=== PATIENT | male | born 1970 | race Two or more races ===

== ENCOUNTER 2025-02-22 18:29 | Inpatient (IN) | payer MEDICAID, OTHER ==
[~2025-02-22] VITALS: Ht 175.3 cm; Wt 88.0 kg
--- NOTE | 2025-02-22 19:15 | ED.PDOC ---
HPI Comments HPI: Poor Historian. 54-year-old male presented to an outside facility ER for shortness of breath x1 day. Patient was seen 1st at [facility] and was sent to our facility for higher level of care for cardiology evaluation. Per records accompanying the patient from the outside facility it shows that the patient has a pericardial effusion. They contacted Dr. Feldman recommended to transfer the patient to our facility. Prior to arrival Patient received a breathing treatment and 20 mg of Lasix. Drug screen was negative chest x-ray from outside facility shows pulmonary vascular congestion report patient had a CTA angiogram of the chest which shows findings/impression of no evidence of PE, cardiomegaly with moderate pericardial effusion, interlobular septal thickening may reflect pulmonary edema, ascites Past Medical History: CVA with left facial droop, ambulatory, patient recently had a heart catheterization and a cardiac stress test which shows no blockage on his hard. Past Surgical History: Allergies to penicillin Patient is on Lasix and Eliquis on carvedilol at home. He states compliance with his medications. REVIEW OF SYSTEMS: CONSTITUTIONAL: Denies acute: fever, diaphoresis, chills, HEAD: Denies acute: headache, photophobia Eyes: Denies acute: Double vision, vision loss, eye pain, eye discharge. EARS: Denies acute: tinnitus, hearing loss, ear discharge, ear pain, THROAT: Denies acute: sore throat, swelling, difficulty swallowing , pain with swallowing, change in voice. NECK: Denies acute: neck pain, neck swelling, stiff neck. HEART: Denies acute : , palpitations, LUNGS: Denies acute: wheezing, cough, hemoptysis ABDOMEN: Denies acute: abdominal pain, Nausea, Vomiting, diarrhea, melena , hematemesis, hematochezia SKIN: Denies acute: rash, redness, lesions, itchiness. EXTREMITIES: Denies acute: calf pain, numbness, tingling, weakness, denies pain in extremity. Denies acute: Low back pain. Neuro: Denies acute: focal neurological deficit, motor or sensory focal neurological deficit, tremors, seizure like activity, confusion, dizziness, change in mental status, loss of bowel or bladder function, cauda equina like symptoms. : Denies acute: dysuria, hematuria, flank pain, increase in urinary frequency. PSYCH: Denies acute: hallucination, suicidal ideation, homicidal ideation. PHYSICAL EXAM: General: ----moderate----acute distress, awake and alert. Head: normocephalic, atraumatic. No raccoon's eyes, no reeves sign. Neck: supple, trachea is midline, no swelling. Throat: Normal phonation. Eyes:, no erythema, no purulent discharge, no proptosis, no icterus. Heart: regular rate, regular rhythm, no significant murmur appreciated. Lungs: mild respiratory distress, Able to speak in full sentences. No wheezing, no rhonchi, no crackles. No stridors . Abdomen: non tender to palpation, non distended, soft, no guarding, no rebound, + bowel sounds. Neuro: Awake, Alert, oriented to name, self, situation, follows commands GCS=15. Speech is normal. Skin: no petechia, no purpura, no cyanosis, non-pale, not jaundice. Lower extremities: --2/4 b/l - Pitting edema no deformity, no focal swelling, no calf TTP. Makes eye contact. moves all four extremities. Face: no apparent facial droop. ED COURSE: DISCLAIMER: This medical document was created using an electronic medical record system with voice recognition software and computerized dictation system. Although this document has been carefully reviewed, there might still be some phonetic and typographical errors. Occasional wrong-word or "sound-alike" substitutions may have occurred due to the inherent limitations of voice recognition software. These areas are purely typographical due to imperfections of the software programs and do not reflect any compromise in the patient's medical care. Please read the chart carefully and recognize, using context, where these substitutions have occurred. Time Seen by MD: 18:33 Reviewed Notes: Allergies Allergies: Coded Allergies: Penicillins (Verified Allergy, Unknown, 02/22/25) Information Source: Patient, Emergency Med Personnel Was a procedure done? Was a procedure done?: No CP Differential Dx Differential Diagnosis: N/A Differential Diagnosis: Other (Ddx include but not limitied to gastritis, mu sculoskeletal pain, radiculopathy, atypical chest pain, dissection, aneurysm, ACS, unstable angina, hiatal hernia, GERD, anxiety, costochondritis, PE, pneumothroax, neoplasm, cardiac ischemia, drug abuse, anemia.) Comment As far as his dyspnea DDx include ACS, unstable angina, anxiety, PE, pneumothroax, neoplasm, cardiac ischemia, COPD, asthma, CHF, pleural effusion, tobacco abuse, pneumonia, hypoxia, hypercapnia, anemia., infection/sepsis., pulmonary edema. Asthma, Cardiac tamponade, infection. X-Ray, Labs, Meds, VS Vital Signs Date Time Temp Pulse Resp B/P (MAP) Pulse Ox O2 Delivery O2 Flow Rate FiO2 02/22/25 20:23 143/103 02/22/25 19:33 98.9 95 20 110/78 100 98.9 02/22/25 19:31 98.7 90 25 128/83 (98) 100 98.7 02/22/25 19:31 63 25 100 Room Air* 0 21 02/22/25 18:30 92 Lab Test 02/22/25 19:57 02/22/25 19:51 02/22/25 19:07 Range/Units Urine Color Light-yellow Yellow Urine Clarity Clear Clear Urine pH 6.0 5.0-9.0 Urine Specific [place] 1.019 1.001-1.035 Urine Protein Negative Negative Urine Ketones Negative Negative Urine Blood Negative Negative /uL Urine Nitrite Negative Negative Urine Bilirubin Negative Negative Urine Urobilinogen Normal Negative mg/dL Urine Leukocyte Esterase Negative Negative /uL Urine RBC <1 0 - 3 /hpf Urine Microscopic WBC 1 0-3 /HPF Urine Squamous Epithelial Cells None seen <5 /hpf Urine Bacteria None seen None Seen /hpf Urine Glucose Normal Normal mg/dL Troponin I High Sensitivity 71 *H 62 *H </=54 ng/L White Blood Count 5.9 4.4-10.8 10^3/uL Red Blood Count 4.24 L 4.5-5.90 10^6/uL Hemoglobin 12.7 L 13.5-17.5 g/dL Hematocrit 38.5 L 41.0-53.0 % Mean Corpuscular Volume 90.8 80.0-100.0 fL Mean Corpuscular Hemoglobin 29.9 28.0-32.0 pg Mean Corpuscular Hemoglobin Concent 33.0 32.0-36.0 g/dL Red Cell Distribution Width 17.9 H 11.8-14.3 % Platelet Count 226 140-450 10^3/uL Mean Platelet Volume 8.5 6.9-10.8 fL Neutrophils (%) (Auto) 64.1 37.0-80.0 % Lymphocytes (%) (Auto) 12.6 10.0-50.0 % Monocytes (%) (Auto) 15.3 H 0.0-12.0 % Eosinophils (%) (Auto) 6.7 0.0-7.0 % Basophils (%) (Auto) 1.3 0.0-2.0 % Neutrophils # (Auto) 3.8 1.6-8.6 10 ^3/uL Lymphocytes # (Auto) 0.7 0.4-5.4 10 ^3/uL Monocytes # (Auto) 0.9 0-1.3 10 ^3/uL Eosinophils # (Auto) 0.4 0-0.8 10 ^3/uL Basophils # (Auto) 0.1 0-0.2 10 ^3/uL Nucleated Red Blood Cells 0.1 % Sodium Level 138 136-145 mmol/L Potassium Level 4.6 3.5-5.1 mmol/L Chloride Level 100 98-107 mmol/L Carbon Dioxide Level 28 20-31 mmol/L Anion Gap 10 5-15 Blood Urea Nitrogen 32 H 9-23 mg/dL Creatinine 1.46 H 0.700-1.30 mg/dL Glomerular Filtration Rate Calc 57 >90 mL/min BUN/Creatinine Ratio 21.9 H 10.0-20.0 Serum Glucose 86 74-106 mg/dL Calcium Level 9.0 8.7-10.4 mg/dL Total Bilirubin 1.1 H 0.2-1.0 mg/dL Aspartate Amino Transferase (AST) 39 13-40 U/L Alanine Aminotransferase (ALT) 28 7-40 U/L Alkaline Phosphatase 158 H 46-116 U/L B-Type Natriuretic Peptide 1065.39 0-100 pg/mL Total Protein 6.4 5.7-8.2 g/dL Albumin 3.9 3.2-4.8 g/dL Current Medications Medications (Trade) Dose Ordered Sig/Lola Route Start Time Stop Time Status Last Admin Furosemide (Lasix Injection) 60 mg ONCE ONCE IV 02/22/25 18:45 02/22/25 18:46 DC 02/22/25 20:23 Aspirin 162 mg ONCE ONCE PO 02/22/25 20:15 02/22/25 20:16 DC 02/22/25 20:24 Acetaminophen/ Hydrocodone Bitart ([place] 5/325MG Tab) 1 tab Q4HP PRN PO 02/22/25 20:15 02/22/25 21:08 X-Ray, Labs, Meds, VS Comment [facility] [id number] [place] [id number] Ph: [phone] DIAGNOSTIC IMAGING Diagnostic Imaging Report : [id number] Signed PATIENT: GORDO JOHNSON ACCT: [id number] UNIT: [id number] : 1970 LOC: ER ROOM / BED: / AGE / SEX: 54 / M ADM STATUS: REG ER SERVICE 41 ORDERING PHYSICIAN: EFRAÍN GENTILE DO PROCEDURE(s): CXRP - CHEST PORTABLE REASON: cp, sob ORDER NUMBER(s): [id number], ACCESSION NUMBER(s): [id number] CHEST RADIOGRAPH Indication: cp, sob Technique: Single frontal view of the chest was obtained Comparison: XR CHEST 1 VIEW on DOS: 02/22/25, XR CHEST 1 VIEW on DOS: 02/19/25, CHEST 1VIEW PORTABLE ([id number]) on DOS: 11/08/24 FINDINGS: Lines and Tubes: None Lungs: No focal consolidation. Pleura: No effusion. No pneumothorax. Cardiomediastinal contours: Cardiomegaly without findings of congestive failure. Consider Possible cardiomyopathy or pericardial effusion 4 etiology of the finding Bones: No acute osseous abnormality. IMPRESSION: 1. Cardiomegaly without congestive failure. 2. Consider cardiomyopathy or pericardial effusion for etiology. ATED BY: ERIC AMIN Jr., DO DICTATED DATE/TIME: 02/22/252050 SIGNED BY: ERIC AMIN Jr., DO SIGNED DATE/TIME: 02/22/252050 CC: Time of 1ST Reevaluation: 20:28 (Patient refused the BiPAP.) Reevaluation 1ST: Improved Patient Education/Counseling: Diagnosis, Treatment Family Education/Counseling: No Family Present Comments MDM: patient presented with the above HPI.--cardiac----workup was initiated. patient was found with the above mentioned diagnosis. the following medications were ordered: please refer to order lists of meds and tests obtained by myself Dr. Gentile. Patient ED course and VS have been stabilized. Patient has been reassessed in the ED and remained in a stable condition. Pertinent incidental findings were discussed with the patient and/or family. Patient/family voices understanding and is agreeable with plan. Patient has been observed in the ED adequate length of time to insure improvement/stability. Escalation of care considered: Consideration of escalation to observation or admission Patient was given Lasix. Patient was placed on a BiPAP but he refused it. Patient was ADMITTED to the medicine team for further evaluation and treatment of their presentation. All the reports of any imaging studies that were ordered by myself were reviewed by myself. SEPSIS Sepsis Screen Physician Orders Fly Finisher (02/22/25 ) Chest Portable (02/22/25 18:42) Electrocardigram (02/22/25 18:42) Electrocardigram (02/22/25 19:42) Electrocardigram (02/22/25 21:42) Aspirin Chewable Tablet (02/23/25 10:00) Atorvastatin (Lipitor) (02/22/25 22:00) Carvedilol Tablet (Coreg Tablet) (02/22/25 22:00) Furosemide Injection (Lasix Injection) (02/23/25 10:00) Allergies (02/22/25 20:04) Code Status (02/22/25 20:04) Sodium Chloride Lock (Saline Lock Ns) (02/22/25 22:00) Oxygen Per Hour (02/22/25 20:04) Hydrocodone-Acet 5/325mg Tab ([place] (02/22/25 20:15) Ondansetron Hcl (Zofran) (02/22/25 20:15) Docusate Sodium Capsule (Colace Capsule) (02/22/25 20:15) Complete Blood Count (02/23/25 04:00) Comprehensive Metabolic Panel (02/23/25 04:00) Cardiac Diet-2gna,Lofat,Lochol (02/23/25 Breakfast) Echo 2d Mode Cardiac Dop (02/22/25 20:04) Condition: Serious (02/22/25 20:04) Acetaminophen Tablet (Tylenol Tablet) (02/22/25 20:15) Bedrest With Bathroom Privileg (02/22/25 20:04) Maintain Bed Rest (02/22/25 20:04) Sequential Compression Device (02/22/25 ) * Cardiology Consult (02/22/25 20:08) Admit (02/22/25 20:34) Nitroglycerin Sublingual (Ntrostat Subli (02/22/25 20:45) Morphine Sulfate Injection (02/22/25 20:45) Stat Ekg For Chest Pain (02/22/25 20:34) Notify Md Of Changes From Base (02/22/25 20:34) Project Development Director For 24 Hours (02/22/25 20:34) Emergency Dysrhythmia Protocol (02/22/25 20:34) Rhythm Strips Once Every Shift (02/22/25 20:34) Oxygen By Nasal Cannula (02/22/25 20:34) Vital Signs Date Time Temp Pulse Resp B/P (MAP) Pulse Ox O2 Delivery O2 Flow Rate FiO2 02/22/25 20:23 143/103 02/22/25 19:33 98.9 95 20 110/78 100 98.9 02/22/25 19:31 98.7 90 25 128/83 (98) 100 98.7 02/22/25 19:31 63 25 100 Room Air* 0 21 02/22/25 18:30 92 Laboratory Tests Test 02/22/25 19:07 White Blood Count 5.9 10^3/uL (4.4-10.8) Medications Medications Dose Ordered Sig/Lola Route Start Time Stop Time Status Last Admin Dose Admin Acetaminophen/ Hydrocodone Bitart 1 tab Q4HP PRN PO 02/22/25 20:15 02/22/25 21:08 Aspirin 162 mg ONCE ONCE PO 02/22/25 20:15 02/22/25 20:16 DC 02/22/25 20:24 Furosemide 60 mg ONCE ONCE IV 02/22/25 18:45 02/22/25 18:46 DC 02/22/25 20:23 Departure 1 Departure Time of Disposition: 19:14 Impression: Primary Impression: CHF exacerbation Additional Impressions: Chest pain Elevated troponin Elevated brain natriuretic peptide (BNP) level Pericardial effusion Ascites Disposition: 09 ADMITTED INPATIENT Admit to: Tele Condition: Guarded Discharged With: Self Critical Care Note Critical Care Time?: Yes (45 min-critical care time only) Heart Score Heart Score: Heart Score Response (Comments) Value History Highly Suspicious 2 EKG Normal 0 Age 45-64 1 Risk Factors >3 or Hx ASHD 2 Troponin 1-2 x's Normal limit 1 Total 6 I personally scribed for EFRAÍN GENTILE DO ([email or web address]) on 02/22/25 at 21:18. Electronically submitted by Lionel Seymour [email or web address]). EFRAÍN GENTILE DO Feb 22, 2025 19:15
[2025-02-22 19:27] LABS: Hematocrit 38.5 % (41.0-53.0); Hemoglobin 12.7 g/dL (13.5-17.5); Mean Corpuscular Hemoglobin 29.9 pg (28.0-32.0); Mean Corpuscular Volume 90.8 fL (80.0-100.0); Nucleated Red Blood Cells % 0.1 %
[2025-02-22 19:31] VITALS: PULSE 63; RESP 25; O2SAT 100
[2025-02-22 19:47] LABS: Alanine Aminotransferase 28 U/L (7-40); Albumin 3.9 g/dL (3.2-4.8); Anion Gap 10 (5-15); BUN/Creatinine Ratio 21.9 (10.0-20.0); Bilirubin, Total 1.1 mg/dL (0.2-1.0); Calcium 9.0 mg/dL (8.7-10.4); Carbon Dioxide 28 mmol/L (20-31); Chloride 100 mmol/L (98-107); Glucose 86 mg/dL (74-106); Potassium 4.6 mmol/L (3.5-5.1); Sodium 138 mmol/L (136-145); Total Protein 6.4 g/dL (5.7-8.2)
[2025-02-22 19:49] LABS: Alkaline Phosphatase 158 U/L (46-116); Blood Urea Nitrogen 32 mg/dL (9-23)
[2025-02-22] MEDS ORDERED: DOCUSATE SOD 100 MG CAP PO PRN (20:15)
[2025-02-22] MEDS ORDERED: ACETAMINOPHEN 325 MG TAB PO PRN (20:15)
[2025-02-22] MEDS ORDERED: ONDANSETRON HCL 4 MG/2 ML VIAL IV PRN (20:15)
[2025-02-22] MEDS: FUROSEMIDE 100 MG/10ML VIAL IV ONE (20:23)
--- NOTE | 2025-02-22 20:35 | DVHHP2 ---
History of Present Illness Reason for Visit: Acute exacerbation of congestive heart failure History of Present Illness The patient is a 54-year-old male with past medical history of CVA with left facial droop who presented to [facility] ED with complaint of chest pain associated with shortness of breaths for the past 1 day. Patient was seen initially at [facility] and was sent to our facility for higher level of care for cardiology evaluation. Per records accompanying the patient from the outside facility it shows that the patient has a pericardial effusion. They contacted Dr. Feldman who recommended to transfer the patient to our facility. Patient was seen and evaluated in the ED, laboratory data shows WBC 5.9, hemoglobin 12.7, hematocrit 38.5, platelets 226, sodium 138, potassium 4.6, BUN 32, creatinine 1.46, GFR 57, glucose 86, bilirubin 1.1, alkaline phos 158, BNP 1065.39, troponin 62, blood pressure 110/78, heart rate 95, temperature 98.9 F, O2 saturation 99% on room air. Patient was started on IV Lasix, please see medication orders section in the computer. On my assessment, patient denied chest pain at this moment, no headache, dizziness, diaphoresis, currently on oxygen, no diarrhea, nausea, vomiting, fever, no chills. Patient was admitted for further evaluation and medical management. Past Medical History CVA with left facial droop Past Surgical History Cardiac catheterization Family History Reviewed, noncontributory to the management of this case. Past Social History The patient lives at home, denies smoking, alcohol or illicit drugs abuse. Review of Systems Constitutional: Yes: Weakness; No: Fever, Chills, Sweats, Malaise, Other Eyes: No: Pain, Vision change, Conjunctivae inflammation, Eyelid inflammation, Other, Redness ENT: No: Ear pain, Ear discharge, Nose pain, Nose discharge, Nose congestion, Mouth pain, Mouth swelling, Throat pain, Throat swelling, Other Respiratory: Shortness of breath; No: Cough, Dry, SOB with excertion, Wheezing, Hemoptysis, Pleuritic Pain, Sputum, Wheezing, Other Cardiovascular: Chest Pain; No: Palpitations, Orthopnea, Paroxysmal Noc. Dyspnea, Edema, Lt Headedness, Other Gastrointestinal: No: Nausea, Vomiting, Abdominal Pain, Diarrhea, Constipation, Melena, Hematochezia, Other Genitourinary: No Dysuria, No Frequency, No Incontinence, No Hematuria, No Ret ention, No Other Musculoskeletal: No: other, neck pain, shoulder pain, arm pain, back pain, hand pain, leg pain, foot pain Skin: No: Rash, Lesions, Jaundice, Bruising, Other Neurological: No: Weakness, Numbness, Incoordination, Change in speech, Confusion, Seizures, Other Allergies: Coded Allergies: Penicillins (Verified Allergy, Unknown, 02/22/25) Medications Current Medications Medications Dose Ordered Sig/Lola Route Start Time Stop Time Status Last Admin Dose Admin Aspirin 81 mg DAILY PO 02/23/25 10:00 Atorvastatin Calcium 10 mg HS PO 02/22/25 22:00 Carvedilol 3.125 mg Q12HR PO 02/22/25 22:00 Furosemide 40 mg DAILY IV 02/23/25 10:00 Sodium Chloride 10 ml Q8HR IV 02/22/25 22:00 Acetaminophen/ Hydrocodone Bitart 1 tab Q4HP PRN PO 02/22/25 20:15 Ondansetron HCl 4 mg Q4HP PRN IV 02/22/25 20:15 Docusate Sodium 100 mg BIDPRN PRN PO 02/22/25 20:15 Acetaminophen 650 mg Q6HP PRN PO 02/22/25 20:15 Exam Vital Signs Vital Signs Date Time Temp Pulse Resp B/P (MAP) Pulse Ox O2 Delivery O2 Flow Rate FiO2 02/22/25 20:23 143/103 02/22/25 19:33 98.9 95 20 100 98.9 02/22/25 19:31 Room Air* 0 21 General Appearance: Alert, Oriented X3, Cooperative, No acute distress HEENT: Atraumatic, PERRLA, EOMI, Mucous membr. moist/pink Respiratory: Normal air movement Cardiovascular: Regular rate, Normal S1, Normal S2, No murmurs Abdominal: Normal bowel sounds, Soft, No tenderness, No hepatospenomegaly, No masses Extremities: No clubbing, No cyanosis, No edema, Normal pulses, No tenderness/swelling Skin: No rashes, No significant lesion Neuro: Normal speech, Normal tone, Sensation intact, Cranial nerves 3-12 NL, Reflexes 2+, Other (Generalized weakness) Psych/Mental Status: Mental status NL, Mood NL Labs/Xrays Labs Test 02/22/25 19:51 02/22/25 19:07 Range/Units White Blood Count 5.9 4.4-10.8 10^3/uL Red Blood Count 4.24 L 4.5-5.90 10^6/uL Hemoglobin 12.7 L 13.5-17.5 g/dL Hematocrit 38.5 L 41.0-53.0 % Mean Corpuscular Volume 90.8 80.0-100.0 fL Mean Corpuscular Hemoglobin 29.9 28.0-32.0 pg Mean Corpuscular Hemoglobin Concent 33.0 32.0-36.0 g/dL Red Cell Distribution Width 17.9 H 11.8-14.3 % Platelet Count 226 140-450 10^3/uL Mean Platelet Volume 8.5 6.9-10.8 fL Neutrophils (%) (Auto) 64.1 37.0-80.0 % Lymphocytes (%) (Auto) 12.6 10.0-50.0 % Monocytes (%) (Auto) 15.3 H 0.0-12.0 % Eosinophils (%) (Auto) 6.7 0.0-7.0 % Basophils (%) (Auto) 1.3 0.0-2.0 % Neutrophils # (Auto) 3.8 1.6-8.6 10 ^3/uL Lymphocytes # (Auto) 0.7 0.4-5.4 10 ^3/uL Monocytes # (Auto) 0.9 0-1.3 10 ^3/uL Eosinophils # (Auto) 0.4 0-0.8 10 ^3/uL Basophils # (Auto) 0.1 0-0.2 10 ^3/uL Nucleated Red Blood Cells 0.1 % Sodium Level 138 136-145 mmol/L Potassium Level 4.6 3.5-5.1 mmol/L Chloride Level 100 98-107 mmol/L Carbon Dioxide Level 28 20-31 mmol/L Anion Gap 10 5-15 Blood Urea Nitrogen 32 H 9-23 mg/dL Creatinine 1.46 H 0.700-1.30 mg/dL Glomerular Filtration Rate Calc 57 >90 mL/min BUN/Creatinine Ratio 21.9 H 10.0-20.0 Serum Glucose 86 74-106 mg/dL Calcium Level 9.0 8.7-10.4 mg/dL Total Bilirubin 1.1 H 0.2-1.0 mg/dL Aspartate Amino Transferase (AST) 39 13-40 U/L Alanine Aminotransferase (ALT) 28 7-40 U/L Alkaline Phosphatase 158 H 46-116 U/L B-Type Natriuretic Peptide 1065.39 0-100 pg/mL Total Protein 6.4 5.7-8.2 g/dL Albumin 3.9 3.2-4.8 g/dL PATIENT: GORDO JOHNSON ACCT: [id number] UNIT: [id number] : 1970 LOC: ER ROOM / BED: / AGE / SEX: 54 / M ADM STATUS: REG ER SERVICE 184 ORDERING PHYSICIAN: EFRAÍN GENTILE DO PROCEDURE(s): CXRP - CHEST PORTABLE REASON: cp, sob ORDER NUMBER(s): [id number], ACCESSION NUMBER(s): [id number] CHEST RADIOGRAPH Indication: cp, sob Technique: Single frontal view of the chest was obtained Comparison: XR CHEST 1 VIEW on DOS: 02/22/25, XR CHEST 1 VIEW on DOS: 02/19/25, CHEST 1VIEW PORTABLE ([id number]) on DOS: 11/08/24 FINDINGS: Lines and Tubes: None Lungs: No focal consolidation. Pleura: No effusion. No pneumothorax. Cardiomediastinal contours: Cardiomegaly without findings of congestive failure. Consider Possible cardiomyopathy or pericardial effusion 4 etiology of the finding Bones: No acute osseous abnormality. IMPRESSION: 1. Cardiomegaly without congestive failure. 2. Consider cardiomyopathy or pericardial effusion for etiology. SEPSIS Sepsis Screen Date sepsis recognized/suspect: Feb 22, 2025 Time Sepsis recognized/suspect: 1831 Recent Procedure: No On Antibiotic Therapy: No Respiratory Rate >20: No Heart Rate >90: No Temp<36 C (96.8 F) or >38.3 C: No SBP <90 or MAP <65 mmHG: No New Acute Mental Status Change: No Is the patient on CPAP, BIPAP,: No Physician Orders Portainer Operator (02/22/25 ) Urinalysis (02/22/25 18:42) Chest Portable (02/22/25 18:42) Electrocardigram (02/22/25 18:42) Troponin-I Hs (02/22/25 19:42) Troponin-I Hs (02/22/25 21:42) Electrocardigram (02/22/25 19:42) Electrocardigram (02/22/25 21:42) Aspirin Chewable Tablet (02/23/25 10:00) Atorvastatin (Lipitor) (02/22/25 22:00) Carvedilol Tablet (Coreg Tablet) (02/22/25 22:00) Furosemide Injection (Lasix Injection) (02/23/25 10:00) Allergies (02/22/25 20:04) Code Status (02/22/25 20:04) Sodium Chloride Lock (Saline Lock Ns) (02/22/25 22:00) Oxygen Per Hour (02/22/25 20:04) Hydrocodone-Acet 5/325mg Tab ([place] (02/22/25 20:15) Ondansetron Hcl (Zofran) (02/22/25 20:15) Docusate Sodium Capsule (Colace Capsule) (02/22/25 20:15) Complete Blood Count (02/23/25 04:00) Comprehensive Metabolic Panel (02/23/25 04:00) Cardiac Diet-2gna,Lofat,Lochol (02/23/25 Breakfast) Echo 2d Mode Cardiac Dop (02/22/25 20:04) Condition: Serious (02/22/25 20:04) Acetaminophen Tablet (Tylenol Tablet) (02/22/25 20:15) Bedrest With Bathroom Privileg (02/22/25 20:04) Maintain Bed Rest (02/22/25 20:04) Sequential Compression Device (02/22/25 ) * Cardiology Consult (02/22/25 20:08) Vital Signs Date Time Temp Pulse Resp B/P (MAP) Pulse Ox O2 Delivery O2 Flow Rate FiO2 02/22/25 20:23 143/103 02/22/25 19:33 98.9 95 20 110/78 100 98.9 02/22/25 19:31 98.7 90 25 128/83 (98) 100 98.7 02/22/25 19:31 63 25 100 Room Air* 0 21 02/22/25 18:30 92 Laboratory Tests Test 02/22/25 19:07 White Blood Count 5.9 10^3/uL (4.4-10.8) Medications Medications Dose Ordered Sig/Lola Route Start Time Stop Time Status Last Admin Dose Admin Aspirin 162 mg ONCE ONCE PO 02/22/25 20:15 02/22/25 20:16 DC 02/22/25 20:24 162 MG Furosemide 60 mg ONCE ONCE IV 02/22/25 18:45 02/22/25 18:46 DC 02/22/25 20:23 60 MG Assessment/Plan Assessment/Plan Acute exacerbation of congestive heart failure Elevated troponin Pericardial effusion Acute renal injury Generalized weakness Plan 1. Admit to telemetry unit 2. Breathing treatment 3. Pain control management 4. Management of fluids and electrolytes 5. Consultation for Cardiology 6. Diagnostic tests chest x-ray/echocardiogram 7. DVT prophylaxis-on aspirin 8. Repeat labs CBC, CMP in a.m. 9. Continue with current medical management 10. Treatment plan discussed with patient and RN. Patient verbalized understanding. Plan discussed with: Patient, Other (RN) My Orders Orders - TIFFANY ZAVALA DNP Procedure Category Date Status Time Aspirin Chewable PHA 02/23/25 In Process Tablet 10:00 Atorvastatin (Lipitor) PHA 02/22/25 In Process 22:00 Carvedilol Tablet PHA 02/22/25 In Process (Coreg Tablet) 22:00 Furosemide Injection PHA 02/23/25 In Process (Lasix Injection) 10:00 Allergies MONTEZ 02/22/25 In Process 20:04 Code Status CODE 02/22/25 Transmitted 20:04 Sodium Chloride Lock PHA 02/22/25 In Process (Saline Lock Ns) 22:00 Oxygen Per Hour RT 02/22/25 Transmitted 20:04 Hydrocodone-Acet PHA 02/22/25 In Process 5/325mg Tab ([place] 20:15 Ondansetron Hcl PHA 02/22/25 In Process (Zofran) 20:15 Docusate Sodium PHA 02/22/25 In Process Capsule (Colace 20:15 Complete Blood Count LAB 02/23/25 Verified 04:00 Comprehensive LAB 02/23/25 Verified Metabolic Panel 04:00 Cardiac DIET 02/23/25 Transmitted Diet-2gna,Lofat,Lochol Breakfast Echo 2d Mode Cardiac US 02/22/25 Logged DOP 20:04 Condition: Serious MONTEZ 02/22/25 In Process 20:04 Acetaminophen Tablet PHA 02/22/25 In Process (Tylenol Tablet) 20:15 Bedrest With Bathroom MONTEZ 02/22/25 In Process Privileg 20:04 Maintain Bed Rest MONTEZ 02/22/25 In Process 20:04 Sequential MONTEZ 02/22/25 In Process Compression Device * Cardiology Consult CONS 02/22/25 Transmitted 20:08 Problem List: (1) Acute exacerbation of congestive heart failure (2) Elevated troponin (3) Pericardial effusion (4) Acute renal injury (5) Generalized weakness Date of Service: Feb 22, 2025 Billing Provider: TIFFANY ZAVALA DNP Common Visit Codes: [id number] INP/OBS CARE (HIGH) TIFFANY ZAVALA DNP Feb 22, 2025 20:35
[2025-02-22] MEDS ORDERED: MORPHINE SULFATE INJ 2 MG/ml SYRG IV PRN (20:45)
--- NOTE | 2025-02-22 20:54 | DVH ---
CHEST RADIOGRAPH Indication: cp, sob Technique: Single frontal view of the chest was obtained Comparison: XR CHEST 1 VIEW on DOS: 02/22/25, XR CHEST 1 VIEW on DOS: 02/19/25, CHEST 1VIEW PORTABLE ([id number]) on DOS: 11/08/24 FINDINGS: Lines and Tubes: None Lungs: No focal consolidation. Pleura: No effusion. No pneumothorax. Cardiomediastinal contours: Cardiomegaly without findings of congestive failure. Consider Possible cardiomyopathy or pericardial effusion 4 etiology of the finding Bones: No acute osseous abnormality. IMPRESSION: 1. Cardiomegaly without congestive failure. 2. Consider cardiomyopathy or pericardial effusion for etiology.
[2025-02-22] MEDS: HYDROcodone-ACET 5/325MG TAB PO PRN (21:08)
[2025-02-22 21:44] LABS: Urine Protein, UAD Negative (Negative)
[2025-02-22] MEDS: CARVEDILOL 3.125 MG TAB PO SCH (22:58)
[2025-02-22] MEDS: SODIUM CHLOR 0.9% PF (SALINE LOCK) 10ML VIAL/SYR IV SCH (22:59)
[2025-02-22] MEDS: ATORVASTATIN 20 MG TAB PO SCH (22:59)
[2025-02-23] VITALS (8 sets, daily range): BP systolic 102–136; BP diastolic 51–87; PULSE 42–93; RESP 16–20; TEMP 97.3–99.4; O2SAT 94–100
[2025-02-23] MEDS: NITROGLYCERIN 0.4 MG SL TAB SL PRN (02:01)
[2025-02-23] MEDS ORDERED: CARV3.1240 PO (04:42)
[2025-02-23] MEDS ORDERED: FURO80TA3 PO (04:42)
[2025-02-23] MEDS ORDERED: NITR0.4S29 SL (04:42)
[2025-02-23] MEDS ORDERED: LISI40TA16 PO (04:42)
[2025-02-23] MEDS ORDERED: APIX2.5T PO (04:42)
[2025-02-23 05:52] LABS: Hematocrit 37.7 % (41.0-53.0); Hemoglobin 12.3 g/dL (13.5-17.5); Mean Corpuscular Hemoglobin 29.6 pg (28.0-32.0); Mean Corpuscular Volume 90.5 fL (80.0-100.0); Nucleated Red Blood Cells % 0.0 %
[2025-02-23 06:14] LABS: Alanine Aminotransferase 27 U/L (7-40); Albumin 3.6 g/dL (3.2-4.8); Anion Gap 9 (5-15); BUN/Creatinine Ratio 21.6 (10.0-20.0); Bilirubin, Total 1.2 mg/dL (0.2-1.0); Calcium 8.9 mg/dL (8.7-10.4); Carbon Dioxide 30 mmol/L (20-31); Chloride 99 mmol/L (98-107); Glucose 91 mg/dL (74-106); Potassium 3.9 mmol/L (3.5-5.1); Sodium 138 mmol/L (136-145); Total Protein 6.1 g/dL (5.7-8.2)
[2025-02-23 06:15] LABS: Alkaline Phosphatase 143 U/L (46-116); Blood Urea Nitrogen 30 mg/dL (9-23)
[2025-02-23] MEDS: FUROSEMIDE 40 MG/4 ML VIAL IV SCH (08:54)
--- NOTE | 2025-02-23 10:39 | ECG ---
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
--- NOTE | 2025-02-23 13:53 | DVHSR ---
APPROVED REPORT EXAM: Two-dimensional and M-mode echocardiogram with Doppler, color Doppler and Optison. Blood Pressure: 106/87 mmHg INDICATION chf exacerbation, unspecified Contrast Details Indication: Rule out thrombus Amount Used: 1mL RISK FACTORS Height: 5'9, Weight: 199 DIMENSIONS LVDd 6.5 (3.8-5.7cm) LA (2D) 4.7 (1.9-4.0cm) Aortic Root 3.3 (2.0-3.7cm) LVDs 6.3 (2.5-4.0cm) LA (MM) (1.9-4.0cm) Aortic Cusp Exc 1.6 (1.5-2.0cm) EF (%) 7.0 (55-70%) Rt. Atrium 5.4 (1.9-4.0cm) Asc. Aorta 3.1 cm IVSd 0.9 (0.7-1.1cm) RV (D) 5.6 (1.8-2.4cm) PWd 1.1 (0.7-1.1cm) Mitral Valve Mitral Mitral Stenosis E wave 0.72m/s MV Mean GR. mmHg A wave 0.33m/s MV Peak GR. 73mmHg E/A ratio 2.2 2D MVA cm2 DECEL Time 110ms PRESS 1/2 Time ms Aortic Valve Aortic Valve Aortic Stenosis V1 0.42m/s AO Mean GR. 3mmHg V2 1.04m/s AO Peak GR. 4mmHg LVOT Diameter 2.0 (1.8-2.4cm) Doppler GABRIELLE 1.27cm2 Pulmonic Valve V2 0.60m/s Tricuspid Valve TR Velocity 2.48m/s RVSP 43mmHg Conclusion 1) Severely dilated cardiomyopathy with estimated ejection fraction of 10-15%. There is a global LV wall hypokinsis. The LV has a "D-shape" consistent with RV volume and pressure overload suggestive of pulmonary HTN with estimated right ventricular systolic pressure of -35-40 mmHg 2)Biatrial dilation 3)Moderate mitral and tricuspid regurgitation 4)Dilated IVC suggestive of possible elevated right atrial pressure 5)Moderate pericardial effusion
--- NOTE | 2025-02-23 14:30 | DVHPN2 ---
Subjective still having sob Reviewed: H&P Changes from previous H/P or p: No Changes Eyes: No Pain, No Vision change, No Conjunctivae inflammation, No Eyelid inflammation, No Other, No Redness ENT: No Ear pain, No Ear discharge, No Nose pain, No Nose discharge, No Nose congestion, No Mouth pain, No Mouth swelling, No Throat pain, No Throat swelling, No Other Cardiovascular: Chest Pain; No Palpitations, No Orthopnea, No Paroxysmal Noc. Dyspnea, No Edema, No Lt Headedness, No Other Respiratory: No Cough, No Dry; Shortness of breath; No SOB with excertion, No Wheezing, No Hemoptysis, No Pleuritic Pain, No Sputum, No Other Gastrointestinal: No Nausea, No Vomiting, No Abdominal Pain, No Diarrhea, No Constipation, No Melena, No Hematochezia, No Other Genitourinary: No Dysuria, No Frequency, No Incontinence, No Hematuria, No Retention, No Other Musculoskeletal: No other, No neck pain, No shoulder pain, No arm pain, No back pain, No hand pain, No leg pain, No foot pain Skin: No Rash, No Lesions, No Jaundice, No Bruising, No Other Objective Vitals Vital Signs Date Time Temp Pulse Resp B/P (MAP) Pulse Ox O2 Delivery O2 Flow Rate FiO2 02/23/25 13:00 97.8 60 16 102/72 (82) 97 97.8 02/23/25 08:00 Room Air* 0 21 Intake/Output Intake and Output 02/23/25 07:00 Intake Total 230 ml Balance 230 ml Intake Oral 230 ml General Appearance: Alert, Oriented X3 HEENT: Atraumatic Lungs: Clear to auscultation Cardiovascular: Regular rate, Normal S1, Normal S2 Extremities: Other (LE edema) Medications Current Medications Medications Dose Ordered Sig/Lola Route Start Time Stop Time Status Last Admin Dose Admin Aspirin 81 mg DAILY PO 02/23/25 10:00 02/23/25 08:53 81 MG Atorvastatin Calcium 10 mg HS PO 02/22/25 22:00 02/22/25 22:59 10 MG Carvedilol 3.125 mg Q12HR PO 02/22/25 22:00 02/23/25 08:53 3.125 MG Furosemide 40 mg DAILY IV 02/23/25 10:00 02/23/25 08:54 40 MG Sodium Chloride 10 ml Q8HR IV 12/5/25 22:00 02/23/25 06:00 10 ML Acetaminophen/ Hydrocodone Bitart 1 tab Q4HP PRN PO 02/22/25 20:15 02/23/25 11:53 1 TAB Ondansetron HCl 4 mg Q4HP PRN IV 02/22/25 20:15 Docusate Sodium 100 mg BIDPRN PRN PO 02/22/25 20:15 Acetaminophen 650 mg Q6HP PRN PO 02/22/25 20:15 Nitroglycerin 0.4 mg Q5MINP PRN SL 02/22/25 20:45 02/23/25 02:01 0.4 MG Morphine Sulfate 2 mg Q30M PRN IV 02/22/25 20:45 Laboratory Results Laboratory Tests 02/23/25 05:21 Chemistry Test 02/22/25 19:07 02/23/25 05:21 Albumin 3.9 g/dL (3.2-4.8) 3.6 g/dL (3.2-4.8) Calcium Level 9.0 mg/dL (8.7-10.4) 8.9 mg/dL (8.7-10.4) Total Protein 6.4 g/dL (5.7-8.2) 6.1 g/dL (5.7-8.2) Cardiac Markers Test 02/22/25 19:07 B-Type Natriuretic Peptide 1065.39 pg/mL (0-100) LFT Test 02/22/25 19:07 02/23/25 05:21 Alanine Aminotransferase (ALT) 28 U/L (7-40) 27 U/L (7-40) Alkaline Phosphatase 158 U/L (46-116) H 143 U/L (46-116) H Aspartate Amino Transferase (AST) 39 U/L (13-40) 38 U/L (13-40) Total Bilirubin 1.1 mg/dL (0.2-1.0) H 1.2 mg/dL (0.2-1.0) H Urinalysis Test 02/22/25 19:57 Urine Color Light-yellow (Yellow) Urine Clarity Clear (Clear) Urine pH 6.0 (5.0-9.0) Urine Specific [place] 1.019 (1.001-1.035) Urine Protein Negative (Negative) Urine Ketones Negative (Negative) Urine Blood Negative /uL (Negative) Urine Nitrite Negative (Negative) Urine Bilirubin Negative (Negative) Urine Urobilinogen Normal mg/dL (Negative) Urine Leukocyte Esterase Negative /uL (Negative) Urine RBC <1 /hpf (0 - 3) Urine Microscopic WBC 1 /HPF (0-3) Urine Squamous Epithelial Cells None seen /hpf (<5) Urine Bacteria None seen /hpf (None Seen) Urine Glucose Normal mg/dL (Normal) Assessment/Plan Assessment/Plan Acute exacerbation of congestive heart failure Elevated troponin Pericardial effusion Acute renal injury Generalized weakness Continue IV lasix echocardiogram cardiology consulted Plan discussed with: Patient Date of Service: Feb 23, 2025 Billing Provider: JUVENCIO BRISCOE MD Common Visit Codes: [id number] INP/OBS CARE(HIGH) JUVENCIO BRISCOE MD Feb 23, 2025 14:30
[2025-02-23 22:37] LABS: Amphetamine Screen, Urine Neg (NEGATIVE); Barbiturate Scree,Urine Neg (NEGATIVE); Benzodiazephine Screen, Urine Neg (NEGATIVE); Cannabinoid Screen, Urine Neg (NEGATIVE); Cocaine Screen, Urine Neg (NEGATIVE); Opiate Scree,Urine Neg (NEGATIVE); Phencyclidine Screen, Urine Neg (NEGATIVE)
[2025-02-24] VITALS (8 sets, daily range): BP systolic 100–110; BP diastolic 63–84; PULSE 53–95; RESP 17–20; TEMP 97.4–98.7; O2SAT 94–99
[2025-02-24] MEDS: OPTISON 3ml Vial for INJ IV ONE (03:52)
--- NOTE | 2025-02-24 05:52 | DVHINCON2 ---
Date of service: Feb 24, 2025 Reason for Consultation Pericardial Effusion History of Present Illness This is a 54-year old male who initially presented with reported shortness of breath for approximately 1 day prior to initial presentation. Patient had initially been evaluated at [facility] for his symptoms which review of chart mentions outside imaging (CTA of Chest) had been performed at [facility] and had revealed no evidence for pulmonary embolism, cardiomegaly with presence of a moderate-sized pericardial effusion, with interlobular septal thickening possibly reflecting pulmonary edema/ascites ultimately prompting OC transfer to present facility for further evaluation/management of reported pericardial effusion which cardiology services were subsequently involved. Throughout course of present admission, Echocardiogram had reported severely dilated cardiomyopathy with an LVEF of 10-15% with global LV wall hypokinesis, biatrial dilation, moderate mitral/tricuspid insufficiency, RVSP of 35-40mmHg consistent with pulmonary hypertension, in addition to presence of a moderate- sized pericardial effusion which patient has remained hemodynamically stable with no evidence for significant hypotension nor tachycardia to suggest tamponade physiology at this point. Of note, patient does mention previous history of heart failure from before that had been diagnosed a few years ago which he is reportedly managed by his primary telegrapher agent Dr. Cooney located in [place], [place] with last follow up approximated to be one month ago. Patient himself does report his EF was around the range of 12% from one year ago (records not available). Does mention he underwent previous angiogram within the last year which he denies any interventions/stenting (records not available). Of note, does report old history of methamphetamine use/abuse which he conveys he no longer uses. UDS at present is found negative. Mentions at one point he had been initiated on Life Vest therapy however had relinquished vest on his own which at present, LIfe Vest therapy had again been offered however patient himself has declined its use despite potential ramifications including sudden cardiac . Of note, patient does take low-dose Eliquis as outpatient which he reports having been on for a few years now initiated by his outside telegrapher agent however indication of anticoagulation at this point is unclear as patient himself denies any history of atrial fibrillation or previous blood clots from before. At present, does have minimal/flat elevation of high sensitive troponins (62, 71, 64, 65). 12-lead electrocardiogram had revealed sinus rhythm, PAC, QTC of 506 milliseconds, with no evidence for acute ischemic changes. Initial BNP level had been found elevated at 1065.39 which subsequent chest x-ray had revealed cardiomegaly without congestive heart failure. Denies any active chest pain, palpitations, dizziness, syncope, orthopnea, paroxysmal nocturnal dyspnea, or any further cardiac related symptoms. Cardiology services were subsequently involved by primary team request for cardiac aspects of care. Reported past medical history includes systolic heart failure and old history of previous cerebral vascular accident, Echocardiogram: severely dilated cardiomyopathy with estimated ejection fraction of 10-15%. There is a global LV wall hypokinesis. The LV has a "D-shape" consistent with RV volume and pressure overload suggestive of pulmonary HTN with estimated right ventricular systolic pressure of -35-40 mmHg. Biatrial dilation. Moderate mitral and tricuspid regurgitation. Dilated IVC suggestive of possible elevated right atrial pressure. Moderate pericardial effusion Past Medical History Reviewed Past Surgical History Reviewed Allergies: Coded Allergies: Penicillins (Verified Allergy, Unknown, 02/22/25) Home Meds Reported Medications Nitroglycerin (NTROSTAT SUBLINGUAL) 0.4 Mg Sl, 0.4 MG SL PRN, TAB *MAY REPEAT EVERY 5 MINUTES X 3 TOTAL IF NO RELIEF, INITIATE ANALGESIC THERAPY. NOTIFY PHYSICIAN *Do not crush. 02/23/25 Apixaban Base (ELIQUIS) 2.5 Mg Tab, 2.5 MG PO BID, TAB 02/23/25 Furosemide (Furosemide) 80 Mg Tab, 1 TAB PO BID, #180 TAB 3 Refills 02/23/25 Carvedilol (Carvedilol) 3.125 Mg Tab, 3.125 MG PO BID for 30 Days, MG 02/23/25 Lisinopril (Lisinopril) 40 Mg Tab, 1 TAB PO DAILY, #30 TAB 5 Refills 02/23/25 Current Medications Current Medications Medications (Trade) Dose Ordered Sig/Lola Route PRN Reason Start Time Stop Time Status Last Admin Aspirin 81 mg DAILY PO 02/23/25 10:00 02/23/25 08:53 Furosemide (Lasix Injection) 40 mg DAILY IV 02/23/25 10:00 02/23/25 08:54 Review of Systems A 14-point review of systems is negative unless otherwise noted above Vital Signs Vital Signs Date Time Temp Pulse Resp B/P (MAP) Pulse Ox O2 Delivery O2 Flow Rate FiO2 12/7/25 05:00 98.2 95 19 104/84 (91) 99 98.2 02/23/25 20:00 Room Air* 0 21 Physical Exam Heart: S1 and S2 regular. No JVD. The patient is in sinus rhythm. Lungs: Scattered rhonchi. Abdomen: Benign. Extremities: Distal pulses palpable, 2+.Mild bilateral peripheral edema Labs/Diagnostic Data Labs Test 02/23/25 21:52 02/23/25 05:21 02/22/25 23:48 02/22/25 19:57 Range/Units Urine Opiates Screen Neg NEGATIVE Urine Fentanyl Screen Neg NEGATIVE Urine Barbiturates Screen Neg NEGATIVE Urine Phencyclidine Screen Neg NEGATIVE Urine Amphetamines Screen Neg NEGATIVE Urine Benzodiazepines Screen Neg NEGATIVE Urine Cocaine Screen Neg NEGATIVE Urine Cannabinoids Screen Neg NEGATIVE White Blood Count 5.7 4.4-10.8 10^3/uL Red Blood Count 4.16 L 4.5-5.90 10^6/uL Hemoglobin 12.3 L 13.5-17.5 g/dL Hematocrit 37.7 L 41.0-53.0 % Mean Corpuscular Volume 90.5 80.0-100.0 fL Mean Corpuscular Hemoglobin 29.6 28.0-32.0 pg Mean Corpuscular Hemoglobin Concent 32.7 32.0-36.0 g/dL Red Cell Distribution Width 18.2 H 11.8-14.3 % Platelet Count 210 140-450 10^3/uL Mean Platelet Volume 8.5 6.9-10.8 fL Neutrophils (%) (Auto) 62.0 37.0-80.0 % Lymphocytes (%) (Auto) 14.4 10.0-50.0 % Monocytes (%) (Auto) 15.1 H 0.0-12.0 % Eosinophils (%) (Auto) 7.1 H 0.0-7.0 % Basophils (%) (Auto) 1.4 0.0-2.0 % Neutrophils # (Auto) 3.5 1.6-8.6 10 ^3/uL Lymphocytes # (Auto) 0.8 0.4-5.4 10 ^3/uL Monocytes # (Auto) 0.9 0-1.3 10 ^3/uL Eosinophils # (Auto) 0.4 0-0.8 10 ^3/uL Basophils # (Auto) 0.1 0-0.2 10 ^3/uL Nucleated Red Blood Cells 0.0 % Sodium Level 138 136-145 mmol/L Potassium Level 3.9 3.5-5.1 mmol/L Chloride Level 99 98-107 mmol/L Carbon Dioxide Level 30 20-31 mmol/L Anion Gap 9 5-15 Blood Urea Nitrogen 30 H 9-23 mg/dL Creatinine 1.39 H 0.700-1.30 mg/dL Glomerular Filtration Rate Calc 60 >90 mL/min BUN/Creatinine Ratio 21.6 H 10.0-20.0 Serum Glucose 91 74-106 mg/dL Calcium Level 8.9 8.7-10.4 mg/dL Total Bilirubin 1.2 H 0.2-1.0 mg/dL Aspartate Amino Transferase (AST) 38 13-40 U/L Alanine Aminotransferase (ALT) 27 7-40 U/L Alkaline Phosphatase 143 H 46-116 U/L Total Protein 6.1 5.7-8.2 g/dL Albumin 3.6 3.2-4.8 g/dL Troponin I High Sensitivity 65 *H </=54 ng/L Urine Color Light-yellow Yellow Urine Clarity Clear Clear Urine pH 6.0 5.0-9.0 Urine Specific [place] 1.019 1.001-1.035 Urine Protein Negative Negative Urine Ketones Negative Negative Urine Blood Negative Negative /uL Urine Nitrite Negative Negative Urine Bilirubin Negative Negative Urine Urobilinogen Normal Negative mg/dL Urine Leukocyte Esterase Negative Negative /uL Urine RBC <1 0 - 3 /hpf Urine Microscopic WBC 1 0-3 /HPF Urine Squamous Epithelial Cells None seen <5 /hpf Urine Bacteria None seen None Seen /hpf Urine Glucose Normal Normal mg/dL Test 02/22/25 19:07 Range/Units B-Type Natriuretic Peptide 1065.39 0-100 pg/mL Plan/Recommendation ASSESSMENT: This is a 54-year old male who initially presented with reported shortness of breath for approximately 1 day prior to initial presentation. Patient had initially been evaluated at [facility] for his symptoms which review of chart mentions outside imaging (CTA of Chest) had been performed at [facility] and had revealed no evidence for pulmonary embolism, cardiomegaly with presence of a moderate-sized pericardial effusion, with interlobular septal thickening possibly reflecting pulmonary edema/ascites ultimately prompting [facility] transfer to present facility for further evaluation/management of reported pericardial effusion which cardiology services were subsequently involved. Throughout course of present admission, Echocardiogram had reported severely dilated cardiomyopathy with an LVEF of 10-15% with global LV wall hypokinesis, biatrial dilation, moderate mitral/tricuspid insufficiency, RVSP of 35-40mmHg consistent with pulmonary hypertension, in addition to presence of a moderate- sized pericardial effusion which patient has remained hemodynamically stable with no evidence for significant hypotension nor tachycardia to suggest tamponade physiology at this point. Of note, patient does mention previous history of heart failure from before that had been diagnosed a few years ago which he is reportedly managed by his primary telegrapher agent Dr. Cooney located in [place], [place] with last follow up approximated to be one month ago. Patient himself does report his EF was around the range of 12% from one year ago (records not available). Does mention he underwent previous angiogram within the last year which he denies any interventions/stenting (records not available). Of note, does report old history of methamphetamine use/abuse which he conveys he no longer uses. UDS at present is found negative. Mentions at one point he had been initiated on Life Vest therapy however had relinquished vest on his own which at present, LIfe Vest therapy had again been offered however patient himself has declined its use despite potential ramifications including sudden cardiac . Of note, patient does take low-dose Eliquis as outpatient which he reports having been on for a few years now initiated by his outside telegrapher agent however indication of anticoagulation at this point is unclear as patient himself denies any history of atrial fibrillation or previous blood clots from before. At present, does have minimal/flat elevation of high sensiti ve troponins (62, 71, 64, 65). 12-lead electrocardiogram had revealed sinus rhythm, PAC, QTC of 506 milliseconds, with no evidence for acute ischemic changes. Initial BNP level had been found elevated at 1065.39 which subsequent chest x-ray had revealed cardiomegaly without congestive heart failure. Denies any active chest pain, palpitations, dizziness, syncope, orthopnea, paroxysmal nocturnal dyspnea, or any further cardiac related symptoms. Cardiology services were subsequently involved by primary team request for cardiac aspects of care. Reported past medical history includes systolic heart failure and old history of previous cerebral vascular accident. Is on chronic anticoagulation Echocardiogram: severely dilated cardiomyopathy with estimated ejection fraction of 10-15%. There is a global LV wall hypokinesis. The LV has a "D-shape" consistent with RV volume and pressure overload suggestive of pulmonary HTN with estimated right ventricular systolic pressure of -35-40 mmHg. Biatrial dilation. Moderate mitral and tricuspid regurgitation. Dilated IVC suggestive of possible elevated right atrial pressure. Moderate pericardial effusion Localized moderate pericardial effusion, no evidence for tamponade physiology Acute on chronic systolic heart failure, LVEF of 10-15% (02/23/2025) Abnormal HS troponins, assessed to reflect type II physiology Pulmonary hypertension (likely type II), RVSP of 35-40mmHg Chronically anticoagulated (Eliquis), indication unclear Moderate mitral/tricuspid insufficiency History of methamphetamine abuse Underlying renal insufficiency Old history of previous CVA QTC prolongation Anemia, stable CARDIAC SUGGESTIONS FOR MANAGEMENT: Recognizing moderate degree pericardial effusion with no evidence suggesting tamponade physiology at this point, recommend proceeding with conservative management and close observation/surveillance as for now. To proceed with diuresis as tolerated. Trial low-dose Colchicine for underlying pericardial effusion as for now. (proceed with close surveillance of CBC). Recognizing clinical presentation/objective findings in addition to report of a recent negative cardiac catheterization, minimal/flat elevation of high sensitive troponin levels are assessed to reflect an underlying component of demand ischemia (type II physiology) in the setting of acute on chronic systolic heart failure in a patient with moderate degree pericardial effusion, pulmonary hypertension, and underlying renal insufficiency for which at this point, no indication for repeat ischemic work up is warranted at present time. To proceed with optimized medical therapy, risk factor modification, and GDMT as concurrent conditions permit. Discontinue previous Carvedilol and trial Metoprolol Succinate 25mg once daily as for now. ARNI/MRA held due to renal insufficiency and borderline blood pressures. Patient will need to follow up with his primary telegrapher agent on an outpatient basis to resume ARNI/MRA if amenable as renal function/hemodynamics permit. Recognizing LVEF of 10-15%, Life Vest had been offered for protection upon discharge however patient has declined despite potential ramifications including sudden cardiac which he is aware of the risk. Is noted to be on chronic anticoagulation (Eliquis) as outpatient which indication at this point is unclear as patient denies any history of atrial fibrillation or blood clots from before. Despite the above, as pericardial effusion is considered stable at this point, continuation of anticoagulation from a cardiac perspective can be justified. As QTC had been found prolonged, avoidance of QT prolonging agents is advised. Management of co-morbidities as per primary team. Will proceed to follow from a cardiac perspective. Proceed with close observation for overt signs of fluid overload Proceed with strict intakes, outputs, and daily weights Proceed with supplemental oxygen as warranted Proceed with close rate and rhythm surveillance Proceed with close hemodynamic surveillance Proceed with optimized blood pressure control Transfuse to sustain HGB level above 9.0 Sustain Magnesium level greater than 2.0 Sustain Potassium level greater than 4.0 Follow up renal function and electrolytes Management in telemetry Will proceed to follow from a cardiac perspective Further recommendations per clinical progression All available diagnostic labs, EKG's, and images were personally reviewed Patient's status, findings, and plan of care was reviewed and discussed with supervising physician Dr. Ortiz, who is in agreement with current plan of care. Plan of care discussed with and agreed upon by patient / primary RN Prognosis: Guarded Thank you for allowing me to participate in the care of this patient. Further recommendations based on patients clinical course and progression, primary attending, and other consultants. Will continue to follow with primary attending. If you have any questions or concerns, please do not hesitate to contact me. A total of 75 minutes was spent reviewing the patient record, examining the patient, making a diagnostic and therapeutic plan, discussing this plan with medical personnel, following up on diagnostic studies and following the patient for clinical stability excluding any and all procedures. At least 50% of this time was spent in direct, [id number] contact. Plan discussed with: Patient (patient and primary team) SOBEIDA RODRIGUESP Feb 24, 2025 05:52
[2025-02-24] MEDS: COLCHICINE 0.6 MG CAP PO SCH (09:53)
[2025-02-24 13:01] LABS: Chloride 98 mmol/L (98-107); Potassium 4.0 mmol/L (3.5-5.1); Sodium 137 mmol/L (136-145)
[2025-02-24 13:02] LABS: Anion Gap 7 (5-15); Calcium 8.9 mg/dL (8.7-10.4)
[2025-02-24 13:07] LABS: BUN/Creatinine Ratio 20.4 (10.0-20.0)
[2025-02-24 13:12] LABS: Blood Urea Nitrogen 29 mg/dL (9-23); Carbon Dioxide 32 mmol/L (20-31); Glucose 108 mg/dL (74-106)
--- NOTE | 2025-02-24 14:36 | DVHPN2 ---
Subjective still having sob Reviewed: H&P Changes from previous H/P or p: No Changes Eyes: No Pain, No Vision change, No Conjunctivae inflammation, No Eyelid inflammation, No Other, No Redness ENT: No Ear pain, No Ear discharge, No Nose pain, No Nose discharge, No Nose congestion, No Mouth pain, No Mouth swelling, No Throat pain, No Throat swelling, No Other Cardiovascular: Chest Pain; No Palpitations, No Orthopnea, No Paroxysmal Noc. Dyspnea, No Edema, No Lt Headedness, No Other Respiratory: No Cough, No Dry; Shortness of breath; No SOB with excertion, No Wheezing, No Hemoptysis, No Pleuritic Pain, No Sputum, No Other Gastrointestinal: No Nausea, No Vomiting, No Abdominal Pain, No Diarrhea, No Constipation, No Melena, No Hematochezia, No Other Genitourinary: No Dysuria, No Frequency, No Incontinence, No Hematuria, No Retention, No Other Musculoskeletal: No other, No neck pain, No shoulder pain, No arm pain, No back pain, No hand pain, No leg pain, No foot pain Skin: No Rash, No Lesions, No Jaundice, No Bruising, No Other Objective Vitals Vital Signs Date Time Temp Pulse Resp B/P (MAP) Pulse Ox O2 Delivery O2 Flow Rate FiO2 02/24/25 13:00 98.0 58 18 107/83 (91) 95 98.0 02/24/25 08:00 Room Air* 0 21 Intake/Output Intake and Output 02/24/25 05:00 Intake Total 1840 ml Output Total 1180 ml Balance 660 ml Intake Oral 1840 ml Output Urine Total 1180 ml # Voids 7 General Appearance: Alert, Oriented X3 HEENT: Atraumatic Lungs: Clear to auscultation Cardiovascular: Regular rate, Normal S1, Normal S2 Extremities: Other (LE edema) Medications Current Medications Medications Dose Ordered Sig/Lola Route Start Time Stop Time Status Last Admin Dose Admin Aspirin 81 mg DAILY PO 02/23/25 10:00 02/24/25 09:53 81 MG Atorvastatin Calcium 10 mg HS PO 02/22/25 22:00 02/23/25 22:01 10 MG Furosemide 40 mg DAILY IV 02/23/25 10:00 02/24/25 09:56 40 MG Sodium Chloride 10 ml Q8HR IV 02/22/25 22:00 02/24/25 05:41 10 ML Acetaminophen/ Hydrocodone Bitart 1 tab Q4HP PRN PO 02/22/25 20:15 02/24/25 09:53 1 TAB Ondansetron HCl 4 mg Q4HP PRN IV 02/22/25 20:15 Docusate Sodium 100 mg BIDPRN PRN PO 02/22/25 20:15 Acetaminophen 650 mg Q6HP PRN PO 02/22/25 20:15 Nitroglycerin 0.4 mg Q5MINP PRN SL 02/22/25 20:45 02/23/25 02:01 0.4 MG Morphine Sulfate 2 mg Q30M PRN IV 02/22/25 20:45 Metoprolol Succinate 25 mg DAILY PO 02/25/25 10:00 Colchicine 0.6 mg DAILY PO 02/25/25 10:00 Laboratory Results Laboratory Tests 02/23/25 05:21 02/24/25 11:53 Chemistry Test 02/24/25 11:53 Calcium Level 8.9 mg/dL (8.7-10.4) Urinalysis Test 02/22/25 19:57 Urine Color Light-yellow (Yellow) Urine Clarity Clear (Clear) Urine pH 6.0 (5.0-9.0) Urine Specific [place] 1.019 (1.001-1.035) Urine Protein Negative (Negative) Urine Ketones Negative (Negative) Urine Blood Negative /uL (Negative) Urine Nitrite Negative (Negative) Urine Bilirubin Negative (Negative) Urine Urobilinogen Normal mg/dL (Negative) Urine Leukocyte Esterase Negative /uL (Negative) Urine RBC <1 /hpf (0 - 3) Urine Microscopic WBC 1 /HPF (0-3) Urine Squamous Epithelial Cells None seen /hpf (<5) Urine Bacteria None seen /hpf (None Seen) Urine Glucose Normal mg/dL (Normal) Microbiology Microbiology Date/Time Source Procedure Growth Status 02/23/25 05:21 Nose MRSA Screen - Final Complete Assessment/Plan Assessment/Plan Acute exacerbation of congestive heart failure Elevated troponin Pericardial effusion Acute renal injury Generalized weakness Continue IV lasix echocardiogram cardiology consulted Plan discussed with: Patient My Orders Orders - JUVENCIO BRISCOE MD Procedure Category Date Status Time Basic Metabolic Panel LAB 02/25/25 Verified 05:00 Basic Metabolic Panel LAB 02/26/25 Verified 05:00 Basic Metabolic Panel LAB 02/27/25 Verified 05:00 Basic Metabolic Panel LAB 02/28/25 Verified 05:00 Basic Metabolic Panel LAB 03/01/25 Verified 05:00 Basic Metabolic Panel LAB 03/02/25 Verified 05:00 Basic Metabolic Panel LAB 03/03/25 Verified 05:00 Date of Service: Feb 24, 2025 Billing Provider: JUVENCIO BRISCOE MD Common Visit Codes: [id number] INP/OBS CARE(HIGH) JUVENCIO BRISCOE MD Feb 24, 2025 14:36
[2025-02-24] MEDS: MELATONIN 5 MG TAB PO ONE (23:27)
[2025-02-25] VITALS (8 sets, daily range): BP systolic 107–131; BP diastolic 64–92; PULSE 53–88; RESP 14–19; TEMP 97.7–98.6; O2SAT 97–99
--- NOTE | 2025-02-25 06:53 | ECG ---
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
[2025-02-25 07:13] LABS: Chloride 102 mmol/L (98-107); Potassium 4.4 mmol/L (3.5-5.1); Sodium 137 mmol/L (136-145)
[2025-02-25 07:14] LABS: Anion Gap 7 (5-15); Calcium 9.0 mg/dL (8.7-10.4); Carbon Dioxide 28 mmol/L (20-31)
[2025-02-25 07:19] LABS: BUN/Creatinine Ratio 20.3 (10.0-20.0); Glucose 81 mg/dL (74-106)
[2025-02-25 07:22] LABS: Blood Urea Nitrogen 27 mg/dL (9-23)
--- NOTE | 2025-02-25 09:04 | ECG ---
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
[2025-02-25] MEDS: METOPROLOL SUCCINATE XL 50 MG TAB PO SCH (10:00)
[2025-02-25] MEDS: COLCHICINE 0.6 MG CAP PO SCH (10:06)
--- NOTE | 2025-02-25 11:26 | DVHPN2 ---
Progress Note - Dictate Date Seen: Feb 25, 2025 Medical Necessity Reason Pt with a Central, PICC or Fol: No vital signs Vital Sign Date Time Temp Pulse Resp B/P (MAP) Pulse Ox O2 Delivery O2 Flow Rate FiO2 02/25/25 10:06 107/64 02/25/25 09:16 98.4 53 14 99 98.4 02/24/25 20:00 Room Air* 0 21 Total Intake and Output 02/24/25 02/24/25 02/25/25 15:00 23:00 07:00 Intake Total 350 ml 800 ml Output Total 850 ml Balance 350 ml -50 ml medications Current Medications Medications Dose Ordered Sig/Lola Route Start Time Stop Time Status Last Admin Dose Admin Aspirin 81 mg DAILY PO 02/23/25 10:00 02/25/25 10:06 81 MG Atorvastatin Calcium 10 mg HS PO 02/22/25 22:00 02/24/25 21:05 10 MG Furosemide 40 mg DAILY IV 02/23/25 10:00 02/25/25 10:06 40 MG Sodium Chloride 10 ml Q8HR IV 02/22/25 22:00 02/25/25 06:10 10 ML Acetaminophen/ Hydrocodone Bitart 1 tab Q4HP PRN PO 02/22/25 20:15 02/25/25 11:13 1 TAB Ondansetron HCl 4 mg Q4HP PRN IV 02/22/25 20:15 Docusate Sodium 100 mg BIDPRN PRN PO 02/22/25 20:15 Acetaminophen 650 mg Q6HP PRN PO 02/22/25 20:15 Nitroglycerin 0.4 mg Q5MINP PRN SL 02/22/25 20:45 02/23/25 02:01 0.4 MG Morphine Sulfate 2 mg Q30M PRN IV 02/22/25 20:45 Metoprolol Succinate 25 mg DAILY PO 02/25/25 10:00 Colchicine 0.6 mg DAILY PO 02/25/25 10:00 02/25/25 10:06 0.6 MG laboratory and microbiology Laboratory Tests 02/25/25 06:39 02/23/25 05:21 Test 02/25/25 06:39 Range/Units Serum Glucose 81 74-106 mg/dL Assessment/Plan This is a 54-year old male who initially presented with reported shortness of breath for approximately 1 day prior to initial presentation. Patient had initially been evaluated at [facility] for his symptoms which review of chart mentions outside imaging (CTA of Chest) had been performed at [facility] and had revealed no evidence for pulmonary embolism, cardiomegaly with presence of a moderate-sized pericardial effusion, with interlobular septal thickening possibly reflecting pulmonary edema/ascites ultimately prompting OC transfer to present facility for further evaluation/management of reported pericardial effusion which cardiology services were subsequently involved. Throughout course of present admission, Echocardiogram had reported severely dilated cardiomyopathy with an LVEF of 10-15% with global LV wall hypokinesis, biatrial dilation, moderate mitral/tricuspid insufficiency, RVSP of 35-40mmHg consistent with pulmonary hypertension, in addition to presence of a moderate- sized pericardial effusion which patient has remained hemodynamically stable with no evidence for significant hypotension nor tachycardia to suggest tamponade physiology at this point. Of note, patient does mention previous history of heart failure from before that had been diagnosed a few years ago which he is reportedly managed by his primary side framer Dr. Cooney located in [place], [place] with last follow up approximated to be one month ago. Patient himself does report his EF was around the range of 12% from one year ago (records not available). Does mention he underwent previous angiogram within the last year which he denies any interventions/stenting (records not available). Of note, does report old history of methamphetamine use/abuse which he conveys he no longer uses. UDS at present is found negative. Mentions at one point he had been initiated on Life Vest therapy however had relinquished vest on his own which at present, LIfe Vest therapy had again been offered however patient himself has declined its use despite potential ramifications including sudden cardiac . Of note, patient does take low-dose Eliquis as outpatient which he reports having been on for a few years now initiated by his outside side framer however indication of anticoagulation at this point is unclear as patient himself denies any history of atrial fibrillation or previous blood clots from before. At present, does have minimal/flat elevation of high sensitive troponins (62, 71, 64, 65). 12-lead electrocardiogram had revealed sinus rhythm, PAC, QTC of 506 milliseconds, with no evidence for acute ischemic changes. Initial BNP level had been found elevated at 1065.39 which subsequent chest x-ray had revealed cardiomegaly without congestive heart failure. Denies any active chest pain, palpitations, dizziness, syncope, orthopnea, paroxysmal nocturnal dyspnea, or any further cardiac related symptoms. Cardiology services were subsequently involved by primary team request for cardiac aspects of care. Reported past medical history includes systolic heart failure and old history of previous cerebral vascular accident. Is on chronic anticoagulation Echocardiogram: severely dilated cardiomyopathy with estimated ejection fraction of 10-15%. There is a global LV wall hypokinesis. The LV has a "D-shape" consistent with RV volume and pressure overload suggestive of pulmonary HTN with estimated right ventricular systolic pressure of -35-40 mmHg. Biatrial dilation. Moderate mitral and tricuspid regurgitation. Dilated IVC suggestive of possible elevated right atrial pressure. Moderate pericardial effusion (images of echo reviewed: pericardial effusion is localized and mild to moderate in size. There is no tamponade physiology in echo images) Localized moderate pericardial effusion, no evidence for tamponade physiology Acute on chronic systolic heart failure, LVEF of 10-15% (02/23/2025) Abnormal HS troponins, assessed to reflect type II physiology Pulmonary hypertension (likely type II), RVSP of 35-40mmHg Chronically anticoagulated (Eliquis), indication unclear Moderate mitral/tricuspid insufficiency History of methamphetamine abuse Underlying renal insufficiency Old history of previous CVA QTC prolongation Anemia, stable CARDIAC SUGGESTIONS FOR MANAGEMENT: Recognizing moderate degree pericardial effusion with no evidence suggesting tamponade physiology at this point, recommend proceeding with conservative management and close observation/surveillance as for now. To proceed with diuresis as tolerated. Trial low-dose Colchicine for underlying pericardial effusion as for now. (proceed with close surveillance of CBC). Recognizing clinical presentation/objective findings in addition to report of a recent negative cardiac catheterization, minimal/flat elevation of high sensitive troponin levels are assessed to reflect an underlying component of demand ischemia (type II physiology) in the setting of acute on chronic systolic heart failure in a patient with moderate degree pericardial effusion, pulmonary hypertension, and underlying renal insufficiency for which at this point, no indication for repeat ischemic work up is warranted at present time. ACS is not considered at this point. To proceed with optimized medical therapy, risk factor modification, and GDMT as concurrent conditions permit. Discontinue previous Carvedilol and trial Metoprolol Succinate 25mg once daily as for now. ARNI/MRA held due to renal insufficiency and borderline blood pressures. Patient will need to follow up with his primary side framer on an outpatient basis to resume ARNI/MRA if amenable as renal function/hemodynamics permit. Recognizing LVEF of 10-15%, Life Vest had been offered for protection upon discharge however patient has declined despite potential ramifications including sudden cardiac which he is aware of the risk. Is noted to be on chronic anticoagulation (Eliquis) as outpatient which indication at this point is unclear as patient denies any history of atrial fibrillation or blood clots from before. Despite the above, as pericardial effusion is considered stable at this point, continuation of anticoagulation from a cardiac perspective can be justified. As QTC had been found prolonged, avoidance of QT prolonging agents is advised. Management of co-morbidities as per primary team. Will proceed to follow from a cardiac perspective. IV diuresis GDMT for systolic heart failure Patient refused the offer for lifeVest and also evaluation for ICD. Wants to follow with his own outside Machine Tool Technician Instructor for them. For now: full anticoagulation (to follow with outside Machine Tool Technician Instructor) Proceed with close observation for overt signs of fluid overload Proceed with strict intakes, outputs, and daily weights Proceed with supplemental oxygen as warranted Proceed with close rate and rhythm surveillance Proceed with close hemodynamic surveillance Proceed with optimized blood pressure control Transfuse to sustain HGB level above 9.0 Sustain Magnesium level greater than 2.0 Sustain Potassium level greater than 4.0 Follow up renal function and electrolytes Management in telemetry Will proceed to follow from a cardiac perspective Further recommendations per clinical progression All available diagnostic labs, EKG's, and images were personally reviewed Plan of care discussed with and agreed upon by patient / primary RN Prognosis: Guarded Thank you for allowing me to participate in the care of this patient. Further recommendations based on patients clinical course and progression, primary attending, and other consultants. Will continue to follow with primary attending. If you have any questions or concerns, please do not hesitate to contact me. A total of 75 minutes was spent reviewing the patient record, examining the patient, making a diagnostic and therapeutic plan, discussing this plan with medical personnel, following up on diagnostic studies and following the patient for clinical stability excluding any and all procedures. At least 50% of this time was spent in direct, [id number] contact. Plan discussed with: Patient, Other (nurse) JOSÉ LIM MD Feb 25, 2025 11:26
[2025-02-25] MEDS ORDERED: METO-6 PO (13:22)
[2025-02-25] MEDS ORDERED: COLC1CAP PO (13:22)
--- NOTE | 2025-02-25 15:48 | DVHPN2 ---
Subjective still having sob Reviewed: H&P Changes from previous H/P or p: No Changes Eyes: No Pain, No Vision change, No Conjunctivae inflammation, No Eyelid inflammation, No Other, No Redness ENT: No Ear pain, No Ear discharge, No Nose pain, No Nose discharge, No Nose congestion, No Mouth pain, No Mouth swelling, No Throat pain, No Throat swelling, No Other Cardiovascular: Chest Pain; No Palpitations, No Orthopnea, No Paroxysmal Noc. Dyspnea, No Edema, No Lt Headedness, No Other Respiratory: No Cough, No Dry; Shortness of breath; No SOB with excertion, No Wheezing, No Hemoptysis, No Pleuritic Pain, No Sputum, No Other Gastrointestinal: No Nausea, No Vomiting, No Abdominal Pain, No Diarrhea, No Constipation, No Melena, No Hematochezia, No Other Genitourinary: No Dysuria, No Frequency, No Incontinence, No Hematuria, No Retention, No Other Musculoskeletal: No other, No neck pain, No shoulder pain, No arm pain, No back pain, No hand pain, No leg pain, No foot pain Skin: No Rash, No Lesions, No Jaundice, No Bruising, No Other Objective Vitals Vital Signs Date Time Temp Pulse Resp B/P (MAP) Pulse Ox O2 Delivery O2 Flow Rate FiO2 02/25/25 13:00 98.5 61 19 112/83 (93) 98 98.5 02/25/25 08:00 Nasal Cannula* 1 24 Intake/Output Intake and Output 02/25/25 05:00 Intake Total 1150 ml Output Total 850 ml Balance 300 ml Intake Oral 1150 ml Output Urine Total 850 ml # Bowel Movements 1 General Appearance: Alert, Oriented X3 HEENT: Atraumatic Lungs: Clear to auscultation Cardiovascular: Regular rate, Normal S1, Normal S2 Extremities: Other (LE edema) Medications Current Medications Medications Dose Ordered Sig/Lola Route Start Time Stop Time Status Last Admin Dose Admin Aspirin 81 mg DAILY PO 02/23/25 10:00 02/25/25 10:06 81 MG Atorvastatin Calcium 10 mg HS PO 02/22/25 22:00 02/24/25 21:05 10 MG Sodium Chloride 10 ml Q8HR IV 02/22/25 22:00 02/25/25 06:10 10 ML Acetaminophen/ Hydrocodone Bitart 1 tab Q4HP PRN PO 02/22/25 20:15 12/8/25 11:13 1 TAB Ondansetron HCl 4 mg Q4HP PRN IV 02/22/25 20:15 Docusate Sodium 100 mg BIDPRN PRN PO 02/22/25 20:15 Acetaminophen 650 mg Q6HP PRN PO 02/22/25 20:15 Nitroglycerin 0.4 mg Q5MINP PRN SL 02/22/25 20:45 02/23/25 02:01 0.4 MG Morphine Sulfate 2 mg Q30M PRN IV 02/22/25 20:45 Metoprolol Succinate 25 mg DAILY PO 02/25/25 10:00 Colchicine 0.6 mg DAILY PO 02/25/25 10:00 02/25/25 10:06 0.6 MG Furosemide 40 mg BIDD IV 02/25/25 22:00 Laboratory Results Laboratory Tests 02/23/25 05:21 02/25/25 06:39 Chemistry Test 02/25/25 06:39 Calcium Level 9.0 mg/dL (8.7-10.4) Urinalysis Test 02/22/25 19:57 Urine Color Light-yellow (Yellow) Urine Clarity Clear (Clear) Urine pH 6.0 (5.0-9.0) Urine Specific [place] 1.019 (1.001-1.035) Urine Protein Negative (Negative) Urine Ketones Negative (Negative) Urine Blood Negative /uL (Negative) Urine Nitrite Negative (Negative) Urine Bilirubin Negative (Negative) Urine Urobilinogen Normal mg/dL (Negative) Urine Leukocyte Esterase Negative /uL (Negative) Urine RBC <1 /hpf (0 - 3) Urine Microscopic WBC 1 /HPF (0-3) Urine Squamous Epithelial Cells None seen /hpf (<5) Urine Bacteria None seen /hpf (None Seen) Urine Glucose Normal mg/dL (Normal) Microbiology Microbiology Date/Time Source Procedure Growth Status 02/23/25 05:21 Nose MRSA Screen - Final Complete Assessment/Plan Assessment/Plan Acute exacerbation of congestive heart failure Elevated troponin Pericardial effusion Acute renal injury Generalized weakness Continue IV lasix echocardiogram EF 10-15% cardiology consulted Plan discussed with: Patient Date of Service: Feb 25, 2025 Billing Provider: JUVENCIO BRISCOE MD Common Visit Codes: [id number] INP/OBS CARE(HIGH) JUVENCIO BRISCOE MD Feb 25, 2025 15:48
[2025-02-25] MEDS: FUROSEMIDE 40 MG/4 ML VIAL IV SCH (21:59)
[2025-02-25] MEDS: MELATONIN 5 MG TAB PO ONE (22:00)
[2025-02-26] VITALS (7 sets, daily range): BP systolic 96–111; BP diastolic 63–87; PULSE 77–98; RESP 18; TEMP 97.8–98; O2SAT 95–99
[2025-02-26 06:26] LABS: Anion Gap 6 (5-15); Calcium 9.1 mg/dL (8.7-10.4); Carbon Dioxide 31 mmol/L (20-31); Chloride 100 mmol/L (98-107); Potassium 3.9 mmol/L (3.5-5.1); Sodium 137 mmol/L (136-145)
[2025-02-26 06:32] LABS: BUN/Creatinine Ratio 18.9 (10.0-20.0); Glucose 100 mg/dL (74-106)
[2025-02-26 06:34] LABS: Blood Urea Nitrogen 25 mg/dL (9-23)
--- NOTE | 2025-02-26 09:15 | DVHPN2 ---
Progress Note - Dictate Date Seen: Feb 26, 2025 Medical Necessity Reason Pt with a Central, PICC or Fol: No vital signs Vital Sign Date Time Temp Pulse Resp B/P (MAP) Pulse Ox O2 Delivery O2 Flow Rate FiO2 02/26/25 08:00 Nasal Cannula* 1 24 02/26/25 05:26 104/62 02/26/25 05:00 98.0 90 18 98 98.0 Total Intake and Output 02/25/25 02/25/25 02/26/25 15:00 23:00 07:00 Intake Total 1400 ml 300 ml Output Total 1450 ml 2700 ml Balance -50 ml -2400 ml medications Current Medications Medications Dose Ordered Sig/Lola Route Start Time Stop Time Status Last Admin Dose Admin Aspirin 81 mg DAILY PO 02/23/25 10:00 02/25/25 10:06 81 MG Atorvastatin Calcium 10 mg HS PO 02/22/25 22:00 02/25/25 21:59 10 MG Sodium Chloride 10 ml Q8HR IV 02/22/25 22:00 02/26/25 05:26 10 ML Acetaminophen/ Hydrocodone Bitart 1 tab Q4HP PRN PO 02/22/25 20:15 02/25/25 11:13 1 TAB Ondansetron HCl 4 mg Q4HP PRN IV 02/22/25 20:15 Docusate Sodium 100 mg BIDPRN PRN PO 02/22/25 20:15 Acetaminophen 650 mg Q6HP PRN PO 02/22/25 20:15 Nitroglycerin 0.4 mg Q5MINP PRN SL 02/22/25 20:45 02/23/25 02:01 0.4 MG Morphine Sulfate 2 mg Q30M PRN IV 02/22/25 20:45 Metoprolol Succinate 25 mg DAILY PO 02/25/25 10:00 Colchicine 0.6 mg DAILY PO 02/25/25 10:00 02/25/25 10:06 0.6 MG Furosemide 40 mg BIDD IV 02/25/25 22:00 02/26/25 05:26 40 MG laboratory and microbiology Laboratory Tests 02/26/25 05:42 02/23/25 05:21 Test 02/26/25 05:42 Range/Units Serum Glucose 100 74-106 mg/dL Assessment/Plan No episodes over night. Hemodynamically stable. This is a 54-year old male who initially presented with reported shortness of breath for approximately 1 day prior to initial presentation. Patient had initially been evaluated at [facility] for his symptoms which review of chart mentions outside imaging (CTA of Chest) had been performed at [facility] and had revealed no evidence for pulmonary embolism, cardiomegaly with presence of a moderate-sized pericardial effusion, with interlobular septal thickening possibly reflecting pulmonary edema/ascites ultimately prompting OC transfer to present facility for further evaluation/management of reported pericardial effusion which cardiology services were subsequently involved. Throughout course of present admission, Echocardiogram had reported severely dilated cardiomyopathy with an LVEF of 10-15% with global LV wall hypokinesis, biatrial dilation, moderate mitral/tricuspid insufficiency, RVSP of 35-40mmHg consistent with pulmonary hypertension, in addition to presence of a moderate- sized pericardial effusion which patient has remained hemodynamically stable with no evidence for significant hypotension nor tachycardia to suggest tamponade physiology at this point. Of note, patient does mention previous history of heart failure from before that had been diagnosed a few years ago which he is reportedly managed by his primary heavy equipment operator/paver Dr. Cooney located in [place], [place] with last follow up approximated to be one month ago. Patient himself does report his EF was around the range of 12% from one year ago (records not available). Does mention he underwent previous angiogram within the last year which he denies any interventions/stenting (records not available). Of note, does report old history of methamphetamine use/abuse which he conveys he no longer uses. UDS at present is found negative. Mentions at one point he had been initiated on Life Vest therapy however had relinquished vest on his own which at present, LIfe Vest therapy had again been offered however patient himself has declined its use despite potential ramifications including sudden cardiac . Of note, patient does take low-dose Eliquis as outpatient which he reports having been on for a few years now initiated by his outside heavy equipment operator/paver however indication of anticoagulation at this point is unclear as patient himself denies any history of atrial fibrillation or previous blood clots from before. At present, does have minimal/flat elevation of high sensitive troponins (62, 71, 64, 65). 12-lead electrocardiogram had revealed sinus rhythm, PAC, QTC of 506 milliseconds, with no evidence for acute ischemic changes. Initial BNP level had been found elevated at 1065.39 which subsequent chest x-ray had revealed cardiomegaly without congestive heart failure. Denies any active chest pain, palpitations, dizziness, syncope, orthopnea, paroxysmal nocturnal dyspnea, or any further cardiac related symptoms. Cardiology services were subsequently involved by primary team request for cardiac aspects of care. Reported past medical history includes systolic heart failure and old history of previous cerebral vascular accident. Is on chronic anticoagulation Echocardiogram: severely dilated cardiomyopathy with estimated ejection fraction of 10-15%. There is a global LV wall hypokinesis. The LV has a "D-shape" consistent with RV volume and pressure overload suggestive of pulmonary HTN with estimated right ventricular systolic pressure of -35-40 mmHg. Biatrial dilation. Moderate mitral and tricuspid regurgitation. Dilated IVC suggestive of possible elevated right atrial pressure. Moderate pericardial effusion (images of echo reviewed: pericardial effusion is localized and mild to moderate in size. There is no tamponade physiology in echo images) Localized moderate pericardial effusion, no evidence for tamponade physiology Acute on chronic systolic heart failure, LVEF of 10-15% (02/23/2025) Abnormal HS troponins, assessed to reflect type II physiology Pulmonary hypertension (likely type II), RVSP of 35-40mmHg Chronically anticoagulated (Eliquis), indication unclear Moderate mitral/tricuspid insufficiency History of methamphetamine abuse Underlying renal insufficiency Old history of previous CVA QTC prolongation Anemia, stable CARDIAC SUGGESTIONS FOR MANAGEMENT: Recognizing moderate degree pericardial effusion with no evidence suggesting tamponade physiology at this point, recommend proceeding with conservative management and close observation/surveillance as for now. To proceed with diuresis as tolerated. Trial low-dose Colchicine for underlying pericardial effusion as for now. (proceed with close surveillance of CBC). Recognizing clinical presentation/objective findings in addition to report of a recent negative cardiac catheterization, minimal/flat elevation of high sensitive troponin levels are assessed to reflect an underlying component of demand ischemia (type II physiology) in the setting of acute on chronic systolic heart failure in a patient with moderate degree pericardial effusion, pulmonary hypertension, and underlying renal insufficiency for which at this point, no indication for repeat ischemic work up is warranted at present time. ACS is not considered at this point. To proceed with optimized medical therapy, risk factor modification, and GDMT as concurrent conditions permit. Discontinue previous Carvedilol and trial Metoprolol Succinate 25mg once daily as for now. ARNI/MRA held due to renal insufficiency and borderline blood pressures. Patient will need to follow up with his primary heavy equipment operator/paver on an outpatient basis to resume ARNI/MRA if amenable as renal function/hemodynamics permit. Recognizing LVEF of 10-15%, Life Vest had been offered for protection upon discharge however patient has declined despite potential ramifications including sudden cardiac which he is aware of the risk. Is noted to be on chronic anticoagulation (Eliquis) as outpatient which indication at this point is unclear as patient denies any history of atrial fibrillation or blood clots from before. Despite the above, as pericardial effusion is considered stable at this point, continuation of anticoagulation from a cardiac perspective can be justified. As QTC had been found prolonged, avoidance of QT prolonging agents is advised. Management of co-morbidities as per primary team. Will proceed to follow from a cardiac perspective. Diuresis GDMT for systolic heart failure Patient refused the offer for lifeVest and also evaluation for ICD. Wants to follow with his own outside [employer] for them. For now: full anticoagulation (to follow with outside Weed Control Inspector) Cardiac montoya is stable and can be followed as outpatient Proceed with close observation for overt signs of fluid overload Proceed with strict intakes, outputs, and daily weights Proceed with supplemental oxygen as warranted Proceed with close rate and rhythm surveillance Proceed with close hemodynamic surveillance Proceed with optimized blood pressure control Transfuse to sustain HGB level above 9.0 Sustain Magnesium level greater than 2.0 Sustain Potassium level greater than 4.0 Follow up renal function and electrolytes Management in telemetry Will proceed to follow from a cardiac perspective Further recommendations per clinical progression All available diagnostic labs, EKG's, and images were personally reviewed Plan of care discussed with and agreed upon by patient / primary RN Prognosis: Guarded Thank you for allowing me to participate in the care of this patient. Further recommendations based on patients clinical course and progression, primary attending, and other consultants. Will continue to follow with primary attending. If you have any questions or concerns, please do not hesitate to contact me. A total of 75 minutes was spent reviewing the patient record, examining the patient, making a diagnostic and therapeutic plan, discussing this plan with medical personnel, following up on diagnostic studies and following the patient for clinical stability excluding any and all procedures. At least 50% of this time was spent in direct, [id number] contact. Plan discussed with: Patient, Other (nurse) JOSÉ LIM MD Feb 26, 2025 09:15
--- NOTE | 2025-02-26 12:22 | DVHPN2 ---
Subjective still having sob Reviewed: H&P Changes from previous H/P or p: No Changes Eyes: No Pain, No Vision change, No Conjunctivae inflammation, No Eyelid inflammation, No Other, No Redness ENT: No Ear pain, No Ear discharge, No Nose pain, No Nose discharge, No Nose congestion, No Mouth pain, No Mouth swelling, No Throat pain, No Throat swelling, No Other Cardiovascular: Chest Pain; No Palpitations, No Orthopnea, No Paroxysmal Noc. Dyspnea, No Edema, No Lt Headedness, No Other Respiratory: No Cough, No Dry; Shortness of breath; No SOB with excertion, No Wheezing, No Hemoptysis, No Pleuritic Pain, No Sputum, No Other Gastrointestinal: No Nausea, No Vomiting, No Abdominal Pain, No Diarrhea, No Constipation, No Melena, No Hematochezia, No Other Genitourinary: No Dysuria, No Frequency, No Incontinence, No Hematuria, No Retention, No Other Musculoskeletal: No other, No neck pain, No shoulder pain, No arm pain, No back pain, No hand pain, No leg pain, No foot pain Skin: No Rash, No Lesions, No Jaundice, No Bruising, No Other Objective Vitals Vital Signs Date Time Temp Pulse Resp B/P (MAP) Pulse Ox O2 Delivery O2 Flow Rate FiO2 02/26/25 10:19 84 92/61 02/26/25 08:00 Nasal Cannula* 1 24 02/26/25 05:00 98.0 18 98 98.0 Intake/Output Intake and Output 02/26/25 07:00 Intake Total 1700 ml Output Total 4150 ml Balance -2450 ml Intake Oral 1700 ml Output Urine Total 4150 ml General Appearance: Alert, Oriented X3 HEENT: Atraumatic Lungs: Clear to auscultation Cardiovascular: Regular rate, Normal S1, Normal S2 Extremities: Other (LE edema) Medications Current Medications Medications Dose Ordered Sig/Lola Route Start Time Stop Time Status Last Admin Dose Admin Aspirin 81 mg DAILY PO 02/23/25 10:00 02/26/25 10:19 81 MG Atorvastatin Calcium 10 mg HS PO 02/22/25 22:00 02/25/25 21:59 10 MG Sodium Chloride 10 ml Q8HR IV 02/22/25 22:00 02/26/25 05:26 10 ML Acetaminophen/ Hydrocodone Bitart 1 tab Q4HP PRN PO 02/22/25 20:15 02/25/25 11:13 1 TAB Ondansetron HCl 4 mg Q4HP PRN IV 02/22/25 20:15 Docusate Sodium 100 mg BIDPRN PRN PO 02/22/25 20:15 Acetaminophen 650 mg Q6HP PRN PO 02/22/25 20:15 Nitroglycerin 0.4 mg Q5MINP PRN SL 02/22/25 20:45 02/23/25 02:01 0.4 MG Morphine Sulfate 2 mg Q30M PRN IV 02/22/25 20:45 Metoprolol Succinate 25 mg DAILY PO 02/25/25 10:00 02/26/25 10:19 25 MG Colchicine 0.6 mg DAILY PO 02/25/25 10:00 02/26/25 10:19 0.6 MG Furosemide 40 mg BIDD IV 02/25/25 22:00 02/26/25 05:26 40 MG Laboratory Results Laboratory Tests 02/23/25 05:21 02/26/25 05:42 Chemistry Test 02/26/25 05:42 Calcium Level 9.1 mg/dL (8.7-10.4) Urinalysis Test 02/22/25 19:57 Urine Color Light-yellow (Yellow) Urine Clarity Clear (Clear) Urine pH 6.0 (5.0-9.0) Urine Specific [place] 1.019 (1.001-1.035) Urine Protein Negative (Negative) Urine Ketones Negative (Negative) Urine Blood Negative /uL (Negative) Urine Nitrite Negative (Negative) Urine Bilirubin Negative (Negative) Urine Urobilinogen Normal mg/dL (Negative) Urine Leukocyte Esterase Negative /uL (Negative) Urine RBC <1 /hpf (0 - 3) Urine Microscopic WBC 1 /HPF (0-3) Urine Squamous Epithelial Cells None seen /hpf (<5) Urine Bacteria None seen /hpf (None Seen) Urine Glucose Normal mg/dL (Normal) Microbiology Microbiology Date/Time Source Procedure Growth Status 02/23/25 05:21 Nose MRSA Screen - Final Complete Assessment/Plan Assessment/Plan Acute exacerbation of congestive heart failure Elevated troponin Pericardial effusion Acute renal injury Generalized weakness Continue IV lasix echocardiogram EF 10-15% cardiology consulted>he has refused AICD in the past and wants to follow up with primary adaptive physical education specialist wean off oxygen Plan discussed with: Patient Date of Service: Feb 26, 2025 Billing Provider: JUVENCIO BRISCOE MD Common Visit Codes: [id number] INP/OBS CARE(HIGH) JUVENCIO BRISCOE MD Feb 26, 2025 12:22
[2025-02-26] MEDS: MORPHINE SULFATE 4 MG/ML SYR/VIAL IV PRN (14:49)
[2025-02-26] MEDS ORDERED: MELATONIN 5 MG TAB PO ONE (23:45)
[2025-02-26] MEDS: MELATONIN 5 MG TAB PO ONE (23:49)
[2025-02-27] VITALS (9 sets, daily range): BP systolic 98–134; BP diastolic 66–112; PULSE 65–93; RESP 14–22; TEMP 98–100; O2SAT 94–98
[2025-02-27 07:43] LABS: Calcium 9.3 mg/dL (8.7-10.4); Potassium 4.2 mmol/L (3.5-5.1); Sodium 136 mmol/L (136-145)
[2025-02-27 07:44] LABS: Anion Gap 7 (5-15)
[2025-02-27 07:49] LABS: Carbon Dioxide 34 mmol/L (20-31); Chloride 95 mmol/L (98-107)
[2025-02-27 07:50] LABS: BUN/Creatinine Ratio 13.7 (10.0-20.0); Blood Urea Nitrogen 22 mg/dL (9-23); Glucose 98 mg/dL (74-106)
--- NOTE | 2025-02-27 10:18 | DVHPN2 ---
Progress Note - Dictate Date Seen: Feb 27, 2025 Medical Necessity Reason Pt with a Central, PICC or Fol: No vital signs Vital Sign Date Time Temp Pulse Resp B/P (MAP) Pulse Ox O2 Delivery O2 Flow Rate FiO2 02/27/25 09:53 85 115/77 02/27/25 05:00 98.2 18 96 98.2 02/26/25 20:00 Nasal Cannula* 1 24 Total Intake and Output 02/26/25 02/26/25 02/27/25 15:00 23:00 07:00 Intake Total 1275 ml 200 ml Output Total 1750 ml 1700 ml Balance -475 ml -1500 ml medications Current Medications Medications Dose Ordered Sig/Lola Route Start Time Stop Time Status Last Admin Dose Admin Aspirin 81 mg DAILY PO 02/23/25 10:00 02/27/25 09:52 81 MG Atorvastatin Calcium 10 mg HS PO 02/22/25 22:00 02/26/25 22:50 10 MG Sodium Chloride 10 ml Q8HR IV 02/22/25 22:00 02/27/25 06:15 10 ML Acetaminophen/ Hydrocodone Bitart 1 tab Q4HP PRN PO 02/22/25 20:15 02/26/25 22:54 1 TAB Ondansetron HCl 4 mg Q4HP PRN IV 02/22/25 20:15 Docusate Sodium 100 mg BIDPRN PRN PO 02/22/25 20:15 Acetaminophen 650 mg Q6HP PRN PO 02/22/25 20:15 Nitroglycerin 0.4 mg Q5MINP PRN SL 02/22/25 20:45 02/23/25 02:01 0.4 MG Metoprolol Succinate 25 mg DAILY PO 02/25/25 10:00 02/27/25 09:53 25 MG Colchicine 0.6 mg DAILY PO 02/25/25 10:00 02/27/25 09:51 0.6 MG Furosemide 40 mg BIDD IV 02/25/25 22:00 02/27/25 06:18 40 MG Morphine Sulfate 2 mg Q30M PRN IV 02/26/25 14:45 02/26/25 14:49 2 MG laboratory and microbiology Laboratory Tests 02/27/25 06:37 02/23/25 05:21 Test 02/27/25 06:37 Range/Units Serum Glucose 98 74-106 mg/dL Assessment/Plan No episodes over night. Hemodynamically stable. This is a 54-year old male who initially presented with reported shortness of breath for approximately 1 day prior to initial presentation. Patient had initially been evaluated at [facility] for his symptoms which review of chart mentions outside imaging (CTA of Chest) had been performed at [facility] and had revealed no evidence for pulmonary embolism, cardiomegaly with presence of a moderate-sized pericardial effusion, with interlobular septal thickening possibly reflecting pulmonary edema/ascites ultimately prompting [facility] transfer to present facility for further evaluation/management of reported pericardial effusion which cardiology services were subsequently involved. Throughout course of present admission, Echocardiogram had reported severely dilated cardiomyopathy with an LVEF of 10-15% with global LV wall hypokinesis, biatrial dilation, moderate mitral/tricuspid insufficiency, RVSP of 35-40mmHg consistent with pulmonary hypertension, in addition to presence of a moderate- sized pericardial effusion which patient has remained hemodynamically stable with no evidence for significant hypotension nor tachycardia to suggest tamponade physiology at this point. Of note, patient does mention previous history of heart failure from before that had been diagnosed a few years ago which he is reportedly managed by his primary healthcare liaison Dr. Cooney located in [place], [place] with last follow up approximated to be one month ago. Patient himself does report his EF was around the range of 12% from one year ago (records not available). Does mention he underwent previous angiogram within the last year which he denies any interventions/stenting (records not available). Of note, does report old history of methamphetamine use/abuse which he conveys he no longer uses. UDS at present is found negative. Mentions at one point he had been initiated on Life Vest therapy however had relinquished vest on his own which at present, LIfe Vest therapy had again been offered however patient himself has declined its use despite potential ramifications including sudden cardiac . Of note, patient does take low-dose Eliquis as outpatient which he reports having been on for a few years now initiated by his outside healthcare liaison however indication of anticoagulation at this point is unclear as patient himself denies any history of atrial fibrillation or previous blood clots from before. At present, does have minimal/flat elevation of high sensitive troponins (62, 71, 64, 65). 12-lead electrocardiogram had revealed sinus rhythm, PAC, QTC of 506 milliseconds, with no evidence for acute ischemic changes. Initial BNP level had been found elevated at 1065.39 which subsequent chest x-ray had revealed cardiomegaly without congestive heart failure. Denies any active chest pain, palpitations, dizziness, syncope, orthopnea, paroxysmal nocturnal dyspnea, or any further cardiac related symptoms. Cardiology services were subsequently involved by primary team request for cardiac aspects of care. Reported past medical history includes systolic heart failure and old history of previous cerebral vascular accident. Is on chronic anticoagulation Echocardiogram: severely dilated cardiomyopathy with estimated ejection fraction of 10-15%. There is a global LV wall hypokinesis. The LV has a "D-shape" consistent with RV volume and pressure overload suggestive of pulmonary HTN with estimated right ventricular systolic pressure of -35-40 mmHg. Biatrial dilation. Moderate mitral and tricuspid regurgitation. Dilated IVC suggestive of possible elevated right atrial pressure. Moderate pericardial effusion (images of echo reviewed: pericardial effusion is localized and mild to moderate in size. There is no tamponade physiology in echo images) Localized moderate pericardial effusion, no evidence for tamponade physiology Acute on chronic systolic heart failure, LVEF of 10-15% (02/23/2025) Abnormal HS troponins, assessed to reflect type II physiology Pulmonary hypertension (likely type II), RVSP of 35-40mmHg Chronically anticoagulated (Eliquis), indication unclear Moderate mitral/tricuspid insufficiency History of methamphetamine abuse Underlying renal insufficiency Old history of previous CVA QTC prolongation Anemia, stable CARDIAC SUGGESTIONS FOR MANAGEMENT: Recognizing moderate degree pericardial effusion with no evidence suggesting tamponade physiology at this point, recommend proceeding with conservative management and close observation/surveillance as for now. To proceed with diuresis as tolerated. Trial low-dose Colchicine for underlying pericardial effusion as for now. (proceed with close surveillance of CBC). Recognizing clinical presentation/objective findings in addition to report of a recent negative cardiac catheterization, minimal/flat elevation of high sensitive troponin levels are assessed to reflect an underlying component of demand ischemia (type II physiology) in the setting of acute on chronic systolic heart failure in a patient with moderate degree pericardial effusion, pulmonary hypertension, and underlying renal insufficiency for which at this point, no indication for repeat ischemic work up is warranted at present time. ACS is not considered at this point. To proceed with optimized medical therapy, risk factor modification, and GDMT as concurrent conditions permit. Discontinue previous Carvedilol and trial Metoprolol Succinate 25mg once daily as for now. ARNI/MRA held due to renal insufficiency and borderline blood pressures. Patient will need to follow up with his primary healthcare liaison on an outpatient basis to resume ARNI/MRA if amenable as renal function/hemodynamics permit. Recognizing LVEF of 10-15%, Life Vest had been offered for protection upon discharge however patient has declined despite potential ramifications including sudden cardiac which he is aware of the risk. Is noted to be on chronic anticoagulation (Eliquis) as outpatient which indication at this point is unclear as patient denies any history of atrial fibrillation or blood clots from before. Despite the above, as pericardial effusion is considered stable at this point, continuation of anticoagulation from a cardiac perspective can be justified. As QTC had been found prolonged, avoidance of QT prolonging agents is advised. Management of co-morbidities as per primary team. Will proceed to follow from a cardiac perspective. Diuresis GDMT for systolic heart failure Patient refused the offer for lifeVest and also evaluation for ICD. Wants to follow with his own outside [employer] for them. For now: full anticoagulation (to follow with outside [employer]) Cardiac montoya is stable and can be followed as outpatient Proceed with close observation for overt signs of fluid overload Proceed with strict intakes, outputs, and daily weights Proceed with supplemental oxygen as warranted Proceed with close rate and rhythm surveillance Proceed with close hemodynamic surveillance Proceed with optimized blood pressure control Transfuse to sustain HGB level above 9.0 Sustain Magnesium level greater than 2.0 Sustain Potassium level greater than 4.0 Follow up renal function and electrolytes Management in telemetry Will proceed to follow from a cardiac perspective Further recommendations per clinical progression All available diagnostic labs, EKG's, and images were personally reviewed Plan of care discussed with and agreed upon by patient / primary RN Prognosis: Guarded Thank you for allowing me to participate in the care of this patient. Further recommendations based on patients clinical course and progression, primary attending, and other consultants. Will continue to follow with primary attending. If you have any questions or concerns, please do not hesitate to contact me. A total of 75 minutes was spent reviewing the patient record, examining the patient, making a diagnostic and therapeutic plan, discussing this plan with medical personnel, following up on diagnostic studies and following the patient for clinical stability excluding any and all procedures. At least 50% of this time was spent in direct, [id number] contact. Plan discussed with: Patient, Other (nurse) JOSÉ LIM MD Feb 27, 2025 10:18
[2025-02-27] MEDS: HYDROmorphone HCL 2 MG/ML VL/or syr IV PRN (13:46)
--- NOTE | 2025-02-27 17:21 | DVHPN2 ---
Subjective still having sob Reviewed: H&P Changes from previous H/P or p: No Changes Eyes: No Pain, No Vision change, No Conjunctivae inflammation, No Eyelid inflammation, No Other, No Redness ENT: No Ear pain, No Ear discharge, No Nose pain, No Nose discharge, No Nose congestion, No Mouth pain, No Mouth swelling, No Throat pain, No Throat swelling, No Other Cardiovascular: Chest Pain; No Palpitations, No Orthopnea, No Paroxysmal Noc. Dyspnea, No Edema, No Lt Headedness, No Other Respiratory: No Cough, No Dry; Shortness of breath; No SOB with excertion, No Wheezing, No Hemoptysis, No Pleuritic Pain, No Sputum, No Other Gastrointestinal: No Nausea, No Vomiting, No Abdominal Pain, No Diarrhea, No Constipation, No Melena, No Hematochezia, No Other Genitourinary: No Dysuria, No Frequency, No Incontinence, No Hematuria, No Retention, No Other Musculoskeletal: No other, No neck pain, No shoulder pain, No arm pain, No back pain, No hand pain, No leg pain, No foot pain Skin: No Rash, No Lesions, No Jaundice, No Bruising, No Other Objective Vitals Vital Signs Date Time Temp Pulse Resp B/P (MAP) Pulse Ox O2 Delivery O2 Flow Rate FiO2 02/27/25 14:16 72 18 114/90 02/27/25 13:00 100.0 98 100.0 02/27/25 08:00 Nasal Cannula* 1 24 Intake/Output Intake and Output 02/27/25 05:00 Intake Total 1475 ml Output Total 4650 ml Balance -3175 ml Intake Oral 1475 ml Output Urine Total 4650 ml General Appearance: Alert, Oriented X3 HEENT: Atraumatic Lungs: Clear to auscultation Cardiovascular: Regular rate, Normal S1, Normal S2 Extremities: Other (LE edema) Medications Current Medications Medications Dose Ordered Sig/Lola Route Start Time Stop Time Status Last Admin Dose Admin Aspirin 81 mg DAILY PO 02/23/25 10:00 02/27/25 09:52 81 MG Atorvastatin Calcium 10 mg HS PO 02/22/25 22:00 02/26/25 22:50 10 MG Sodium Chloride 10 ml Q8HR IV 02/22/25 22:00 02/27/25 13:03 10 ML Acetaminophen/ Hydrocodone Bitart 1 tab Q4HP PRN PO 02/22/25 20:15 02/26/25 22:54 1 TAB Ondansetron HCl 4 mg Q4HP PRN IV 02/22/25 20:15 Docusate Sodium 100 mg BIDPRN PRN PO 02/22/25 20:15 Acetaminophen 650 mg Q6HP PRN PO 02/22/25 20:15 Nitroglycerin 0.4 mg Q5MINP PRN SL 02/22/25 20:45 02/23/25 02:01 0.4 MG Metoprolol Succinate 25 mg DAILY PO 02/25/25 10:00 02/27/25 09:53 25 MG Colchicine 0.6 mg DAILY PO 02/25/25 10:00 02/27/25 09:51 0.6 MG Furosemide 40 mg BIDD IV 02/25/25 22:00 02/27/25 06:18 40 MG Morphine Sulfate 2 mg Q30M PRN IV 02/26/25 14:45 02/26/25 14:49 2 MG Hydromorphone HCl 0.5 mg Q6HP PRN IV 02/27/25 13:15 02/27/25 13:46 0.5 MG Laboratory Results Laboratory Tests 02/23/25 05:21 02/27/25 06:37 Chemistry Test 02/27/25 06:37 Calcium Level 9.3 mg/dL (8.7-10.4) Urinalysis Test 02/22/25 19:57 Urine Color Light-yellow (Yellow) Urine Clarity Clear (Clear) Urine pH 6.0 (5.0-9.0) Urine Specific [place] 1.019 (1.001-1.035) Urine Protein Negative (Negative) Urine Ketones Negative (Negative) Urine Blood Negative /uL (Negative) Urine Nitrite Negative (Negative) Urine Bilirubin Negative (Negative) Urine Urobilinogen Normal mg/dL (Negative) Urine Leukocyte Esterase Negative /uL (Negative) Urine RBC <1 /hpf (0 - 3) Urine Microscopic WBC 1 /HPF (0-3) Urine Squamous Epithelial Cells None seen /hpf (<5) Urine Bacteria None seen /hpf (None Seen) Urine Glucose Normal mg/dL (Normal) Microbiology Microbiology Date/Time Source Procedure Growth Status 02/23/25 05:21 Nose MRSA Screen - Final Complete Assessment/Plan Assessment/Plan Acute exacerbation of congestive heart failure Elevated troponin Pericardial effusion Acute renal injury Generalized weakness Continue IV lasix echocardiogram EF 10-15% cardiology consulted>he has refused AICD in the past and wants to follow up with primary head of art wean off oxygen Plan discussed with: Patient My Orders Orders - JUVENCIO BRISCOE MD Procedure Category Date Status Time Hydromorphone PHA 02/27/25 In Process Injection (Dilaudid 13:15 Electrocardigram EKG 02/27/25 Logged 13:12 Date of Service: Feb 27, 2025 Billing Provider: JUVENCIO BRISCOE MD Common Visit Codes: [id number] INP/OBS CARE(HIGH) JUVENCIO BRISCOE MD Feb 27, 2025 17:21
[2025-02-28] VITALS (12 sets, daily range): BP systolic 101–123; BP diastolic 65–92; PULSE 45–87; RESP 14–20; TEMP 97.4–98.5; O2SAT 95–100
[2025-02-28 07:09] LABS: Potassium 4.7 mmol/L (3.5-5.1)
[2025-02-28 07:10] LABS: Anion Gap 9 (5-15); Calcium 9.3 mg/dL (8.7-10.4)
[2025-02-28 07:15] LABS: BUN/Creatinine Ratio 17.6 (10.0-20.0); Glucose 79 mg/dL (74-106)
[2025-02-28 07:17] LABS: Blood Urea Nitrogen 32 mg/dL (9-23); Carbon Dioxide 32 mmol/L (20-31); Chloride 95 mmol/L (98-107); Sodium 136 mmol/L (136-145)
--- NOTE | 2025-02-28 07:52 | DVHPN2 ---
Progress Note - Dictate Date Seen: Feb 28, 2025 Medical Necessity Reason Pt with a Central, PICC or Fol: No vital signs Vital Sign Date Time Temp Pulse Resp B/P (MAP) Pulse Ox O2 Delivery O2 Flow Rate FiO2 02/28/25 05:24 114/77 02/28/25 05:00 98.0 63 14 95 98.0 02/27/25 20:00 Nasal Cannula* 2 28 Total Intake and Output 02/27/25 02/27/25 02/28/25 15:00 23:00 07:00 Intake Total 720 ml 1840 ml 700 ml Output Total 1100 ml 750 ml Balance 720 ml 740 ml -50 ml medications Current Medications Medications Dose Ordered Sig/Lola Route Start Time Stop Time Status Last Admin Dose Admin Aspirin 81 mg DAILY PO 02/23/25 10:00 02/27/25 09:52 81 MG Atorvastatin Calcium 10 mg HS PO 02/22/25 22:00 02/27/25 20:55 10 MG Sodium Chloride 10 ml Q8HR IV 02/22/25 22:00 02/28/25 05:32 10 ML Acetaminophen/ Hydrocodone Bitart 1 tab Q4HP PRN PO 02/22/25 20:15 02/26/25 22:54 1 TAB Ondansetron HCl 4 mg Q4HP PRN IV 02/22/25 20:15 Docusate Sodium 100 mg BIDPRN PRN PO 02/22/25 20:15 Acetaminophen 650 mg Q6HP PRN PO 02/22/25 20:15 Nitroglycerin 0.4 mg Q5MINP PRN SL 02/22/25 20:45 02/23/25 02:01 0.4 MG Metoprolol Succinate 25 mg DAILY PO 02/25/25 10:00 02/27/25 09:53 25 MG Colchicine 0.6 mg DAILY PO 02/25/25 10:00 02/27/25 09:51 0.6 MG Furosemide 40 mg BIDD IV 02/25/25 22:00 02/28/25 05:24 40 MG Morphine Sulfate 2 mg Q30M PRN IV 02/26/25 14:45 02/26/25 14:49 2 MG Hydromorphone HCl 0.5 mg Q6HP PRN IV 02/27/25 13:15 02/28/25 02:49 0.5 MG laboratory and microbiology Laboratory Tests 02/28/25 06:08 02/23/25 05:21 Test 02/28/25 06:08 Range/Units Serum Glucose 79 74-106 mg/dL Assessment/Plan No episodes over night. Hemodynamically stable. This is a 54-year old male who initially presented with reported shortness of breath for approximately 1 day prior to initial presentation. Patient had initially been evaluated at [facility] for his symptoms which review of chart mentions outside imaging (CTA of Chest) had been performed at [facility] and had revealed no evidence for pulmonary embolism, cardiomegaly with presence of a moderate-sized pericardial effusion, with interlobular septal thickening possibly reflecting pulmonary edema/ascites ultimately prompting [facility] transfer to present facility for further evaluation/management of reported pericardial effusion which cardiology services were subsequently involved. Throughout course of present admission, Echocardiogram had reported severely dilated cardiomyopathy with an LVEF of 10-15% with global LV wall hypokinesis, biatrial dilation, moderate mitral/tricuspid insufficiency, RVSP of 35-40mmHg consistent with pulmonary hypertension, in addition to presence of a moderate- sized pericardial effusion which patient has remained hemodynamically stable with no evidence for significant hypotension nor tachycardia to suggest tamponade physiology at this point. Of note, patient does mention previous history of heart failure from before that had been diagnosed a few years ago which he is reportedly managed by his primary multiskill operator Dr. Cooney located in [place], [place] with last follow up approximated to be one month ago. Patient himself does report his EF was around the range of 12% from one year ago (records not available). Does mention he underwent previous angiogram within the last year which he denies any interventions/stenting (records not available). Of note, does report old history of methamphetamine use/abuse which he conveys he no longer uses. UDS at present is found negative. Mentions at one point he had been initiated on Life Vest therapy however had relinquished vest on his own which at present, LIfe Vest therapy had again been offered however patient himself has declined its use despite potential ramifications including sudden cardiac . Of note, patient does take low-dose Eliquis as outpatient which he reports having been on for a few years now initiated by his outside multiskill operator however indication of anticoagulation at this point is unclear as patient himself denies any history of atrial fibrillation or previous blood clots from before. At present, does have minimal/flat elevation of high sensitive troponins (62, 71, 64, 65). 12-lead electrocardiogram had revealed sinus rhythm, PAC, QTC of 506 milliseconds, with no evidence for acute ischemic changes. Initial BNP level had been found elevated at 1065.39 which subsequent chest x-ray had revealed cardiomegaly without congestive heart failure. Denies any active chest pain, palpitations, dizziness, syncope, orthopnea, paroxysmal nocturnal dyspnea, or any further cardiac related symptoms. Cardiology services were subsequently involved by primary team request for cardiac aspects of care. Reported past medical history includes systolic heart failure and old history of previous cerebral vascular accident. Is on chronic anticoagulation Echocardiogram: severely dilated cardiomyopathy with estimated ejection fraction of 10-15%. There is a global LV wall hypokinesis. The LV has a "D-shape" consistent with RV volume and pressure overload suggestive of pulmonary HTN with estimated right ventricular systolic pressure of -35-40 mmHg. Biatrial dilation. Moderate mitral and tricuspid regurgitation. Dilated IVC suggestive of possible elevated right atrial pressure. Moderate pericardial effusion (images of echo reviewed: pericardial effusion is localized and mild to moderate in size. There is no tamponade physiology in echo images) Localized moderate pericardial effusion, no evidence for tamponade physiology Acute on chronic systolic heart failure, LVEF of 10-15% (02/23/2025) Abnormal HS troponins, assessed to reflect type II physiology Pulmonary hypertension (likely type II), RVSP of 35-40mmHg Chronically anticoagulated (Eliquis), indication unclear Moderate mitral/tricuspid insufficiency History of methamphetamine abuse Underlying renal insufficiency Old history of previous CVA QTC prolongation Anemia, stable CARDIAC SUGGESTIONS FOR MANAGEMENT: Recognizing moderate degree pericardial effusion with no evidence suggesting tamponade physiology at this point, recommend proceeding with conservative management and close observation/surveillance as for now. To proceed with diuresis as tolerated. Trial low-dose Colchicine for underlying pericardial effusion as for now. (proceed with close surveillance of CBC). Recognizing clinical presentation/objective findings in addition to report of a recent negative cardiac catheterization, minimal/flat elevation of high sensitive troponin levels are assessed to reflect an underlying component of demand ischemia (type II physiology) in the setting of acute on chronic systolic heart failure in a patient with moderate degree pericardial effusion, pulmonary hypertension, and underlying renal insufficiency for which at this point, no indication for repeat ischemic work up is warranted at present time. ACS is not considered at this point. To proceed with optimized medical therapy, risk factor modification, and GDMT as concurrent conditions permit. Discontinue previous Carvedilol and trial Metoprolol Succinate 25mg once daily as for now. ARNI/MRA held due to renal insufficiency and borderline blood pressures. Patient will need to follow up with his primary multiskill operator on an outpatient basis to resume ARNI/MRA if amenable as renal function/hemodynamics permit. Recognizing LVEF of 10-15%, Life Vest had been offered for protection upon discharge however patient has declined despite potential ramifications including sudden cardiac which he is aware of the risk. Is noted to be on chronic anticoagulation (Eliquis) as outpatient which indication at this point is unclear as patient denies any history of atrial fibrillation or blood clots from before. Despite the above, as pericardial effusion is considered stable at this point, continuation of anticoagulation from a cardiac perspective can be justified. As QTC had been found prolonged, avoidance of QT prolonging agents is advised. Management of co-morbidities as per primary team. Will proceed to follow from a cardiac perspective. Diuresis GDMT for systolic heart failure Patient refused the offer for lifeVest and also evaluation for ICD. Wants to follow with his own outside Dry Charge Process Attendant for them. For now: full anticoagulation (to follow with outside Dry Charge Process Attendant) Cardiac montoya is stable and can be followed as outpatient Proceed with close observation for overt signs of fluid overload Proceed with strict intakes, outputs, and daily weights Proceed with supplemental oxygen as warranted Proceed with close rate and rhythm surveillance Proceed with close hemodynamic surveillance Proceed with optimized blood pressure control Transfuse to sustain HGB level above 9.0 Sustain Magnesium level greater than 2.0 Sustain Potassium level greater than 4.0 Follow up renal function and electrolytes Management in telemetry Will proceed to follow from a cardiac perspective Further recommendations per clinical progression All available diagnostic labs, EKG's, and images were personally reviewed Plan of care discussed with and agreed upon by patient / primary RN Prognosis: Guarded Thank you for allowing me to participate in the care of this patient. Further recommendations based on patients clinical course and progression, primary attending, and other consultants. Will continue to follow with primary attending. If you have any questions or concerns, please do not hesitate to contact me. A total of 75 minutes was spent reviewing the patient record, examining the patient, making a diagnostic and therapeutic plan, discussing this plan with medical personnel, following up on diagnostic studies and following the patient for clinical stability excluding any and all procedures. At least 50% of this time was spent in direct, [id number] contact. Plan discussed with: Patient, Other (nurse) JOSÉ LIM MD Feb 28, 2025 07:52
--- NOTE | 2025-02-28 10:34 | ECG ---
[facility] Test Date: 2025-02-27 Test Time: 12:29:08 Pat Name: GORDO JOHNSON Department: Respiratoy Room: [facility]5T B Gender: M Coding Spec: JAMEY : 1970 Requested By: JUVENCIO BRISCOE Order Number: [id number] Reading MD: Angel Chavez Measurements Intervals [place] Rate: 93 P: 56 CT: 164 QRS: -39 QRSD: 106 T: 115 QT: 378 QTc: 471 Interpretive Statements Sinus rhythm Atrial premature complex Left atrial enlargement LVH with secondary repolarization abnormality Anterior Q waves, possibly due to LVH Electronically Signed On 02-28-2025 18:28:54 PST by Angel Chavez Please click the below link to view image of tracing.
--- NOTE | 2025-02-28 13:27 | DVHPN2 ---
Subjective still having sob Reviewed: H&P Changes from previous H/P or p: No Changes Eyes: No Pain, No Vision change, No Conjunctivae inflammation, No Eyelid inflammation, No Other, No Redness ENT: No Ear pain, No Ear discharge, No Nose pain, No Nose discharge, No Nose congestion, No Mouth pain, No Mouth swelling, No Throat pain, No Throat swelling, No Other Cardiovascular: Chest Pain; No Palpitations, No Orthopnea, No Paroxysmal Noc. Dyspnea, No Edema, No Lt Headedness, No Other Respiratory: No Cough, No Dry; Shortness of breath; No SOB with excertion, No Wheezing, No Hemoptysis, No Pleuritic Pain, No Sputum, No Other Gastrointestinal: No Nausea, No Vomiting, No Abdominal Pain, No Diarrhea, No Constipation, No Melena, No Hematochezia, No Other Genitourinary: No Dysuria, No Frequency, No Incontinence, No Hematuria, No Retention, No Other Musculoskeletal: No other, No neck pain, No shoulder pain, No arm pain, No back pain, No hand pain, No leg pain, No foot pain Skin: No Rash, No Lesions, No Jaundice, No Bruising, No Other Objective Vitals Vital Signs Date Time Temp Pulse Resp B/P (MAP) Pulse Ox O2 Delivery O2 Flow Rate FiO2 02/28/25 13:00 98.5 79 20 104/76 (85) 98 98.5 02/28/25 08:00 Nasal Cannula* 1 24 Intake/Output Intake and Output 02/28/25 06:59 Intake Total 3260 ml Output Total 1850 ml Balance 1410 ml Intake Oral 3260 ml Output Urine Total 1850 ml General Appearance: Alert, Oriented X3 HEENT: Atraumatic Lungs: Clear to auscultation Cardiovascular: Regular rate, Normal S1, Normal S2 Extremities: Other (LE edema) Medications Current Medications Medications Dose Ordered Sig/Lola Route Start Time Stop Time Status Last Admin Dose Admin Aspirin 81 mg DAILY PO 02/23/25 10:00 02/28/25 09:08 81 MG Atorvastatin Calcium 10 mg HS PO 02/22/25 22:00 02/27/25 20:55 10 MG Sodium Chloride 10 ml Q8HR IV 02/22/25 22:00 02/28/25 05:32 10 ML Acetaminophen/ Hydrocodone Bitart 1 tab Q4HP PRN PO 02/22/25 20:15 02/26/25 22:54 1 TAB Ondansetron HCl 4 mg Q4HP PRN IV 02/22/25 20:15 Docusate Sodium 100 mg BIDPRN PRN PO 02/22/25 20:15 Acetaminophen 650 mg Q6HP PRN PO 02/22/25 20:15 Nitroglycerin 0.4 mg Q5MINP PRN SL 02/22/25 20:45 02/23/25 02:01 0.4 MG Metoprolol Succinate 25 mg DAILY PO 02/25/25 10:00 02/28/25 09:08 25 MG Colchicine 0.6 mg DAILY PO 02/25/25 10:00 02/28/25 09:08 0.6 MG Furosemide 40 mg BIDD IV 02/25/25 22:00 02/28/25 05:24 40 MG Morphine Sulfate 2 mg Q30M PRN IV 02/26/25 14:45 02/26/25 14:49 2 MG Hydromorphone HCl 0.5 mg Q6HP PRN IV 02/27/25 13:15 02/28/25 09:08 0.5 MG Laboratory Results Laboratory Tests 02/23/25 05:21 02/28/25 06:08 Chemistry Test 02/28/25 06:08 Calcium Level 9.3 mg/dL (8.7-10.4) Urinalysis Test 02/22/25 19:57 Urine Color Light-yellow (Yellow) Urine Clarity Clear (Clear) Urine pH 6.0 (5.0-9.0) Urine Specific [place] 1.019 (1.001-1.035) Urine Protein Negative (Negative) Urine Ketones Negative (Negative) Urine Blood Negative /uL (Negative) Urine Nitrite Negative (Negative) Urine Bilirubin Negative (Negative) Urine Urobilinogen Normal mg/dL (Negative) Urine Leukocyte Esterase Negative /uL (Negative) Urine RBC <1 /hpf (0 - 3) Urine Microscopic WBC 1 /HPF (0-3) Urine Squamous Epithelial Cells None seen /hpf (<5) Urine Bacteria None seen /hpf (None Seen) Urine Glucose Normal mg/dL (Normal) Microbiology Microbiology Date/Time Source Procedure Growth Status 02/23/25 05:21 Nose MRSA Screen - Final Complete Assessment/Plan Assessment/Plan Acute systolic HF exacerbation EF 10% Elevated troponin Pericardial effusion Acute renal injury due to VMN Creat trending up to 1.8 Generalized weakness Continue IV lasix echocardiogram EF 10-15% cardiology consulted>he has refused AICD in the past and wants to follow up with primary hand candy cutter wean off oxygen Decrease lasix Plan discussed with: Patient My Orders Orders - JUVENCIO BRISCOE MD Procedure Category Date Status Time * Zinc [employer]er CONS 02/28/25 Transmitted Consult Date of Service: Feb 28, 2025 Billing Provider: JUVENCIO BRISCOE MD Common Visit Codes: [id number] INP/OBS CARE(HIGH) JUVENCIO BRISCOE MD Feb 28, 2025 13:27
[2025-02-28] MEDS: ALBUTEROL SULF 2.5 MG/0.5ML(0.5%) NEB SOLN NEB SCH (15:53)
--- NOTE | 2025-02-28 16:12 | DVH ---
CHEST RADIOGRAPH INDICATION: SHORT OF BREATH TECHNIQUE: Single frontal view of the chest was obtained COMPARISON: XY CHEST PORTABLE on DOS: 02/22/25, XR CHEST 1 VIEW on DOS: 02/22/25, XR CHEST 1 VIEW on DOS: 02/19/25 report only FINDINGS: Lines and Tubes: None Lungs: No focal consolidation. Diffuse interstitial prominence Pleura: No effusion. No pneumothorax. Cardiomediastinal contours: Severe cardiomegaly Bones: No acute osseous abnormality. IMPRESSION: Severe cardiomegaly with findings suggestive of congestive heart failure. Pericardial effusion can not be excluded.
[2025-03-01] VITALS (11 sets, daily range): BP systolic 104–117; BP diastolic 58–101; PULSE 62–89; RESP 17–19; TEMP 97.3–98.1; O2SAT 91–100
[2025-03-01 07:17] LABS: Anion Gap 9 (5-15); Carbon Dioxide 30 mmol/L (20-31); Potassium 4.2 mmol/L (3.5-5.1)
[2025-03-01 07:18] LABS: Calcium 9.7 mg/dL (8.7-10.4)
[2025-03-01 07:23] LABS: BUN/Creatinine Ratio 21.4 (10.0-20.0); Glucose 95 mg/dL (74-106)
[2025-03-01 07:24] LABS: Blood Urea Nitrogen 36 mg/dL (9-23); Chloride 94 mmol/L (98-107); Sodium 133 mmol/L (136-145)
--- NOTE | 2025-03-01 08:11 | DVHPN2 ---
Progress Note - Dictate Date Seen: Mar 01, 2025 Medical Necessity Reason Pt with a Central, PICC or Fol: No vital signs Vital Sign Date Time Temp Pulse Resp B/P (MAP) Pulse Ox O2 Delivery O2 Flow Rate FiO2 03/01/25 05:10 97.8 84 18 116/101 (106) 91 97.8 02/28/25 20:31 Nasal Cannula 3.0 02/28/25 20:31 32 Total Intake and Output 02/28/25 02/28/25 03/01/25 15:00 23:00 07:00 Intake Total 1250 ml 510 ml Output Total 1000 ml 450 ml Balance 250 ml 60 ml medications Current Medications Medications Dose Ordered Sig/Lola Route Start Time Stop Time Status Last Admin Dose Admin Aspirin 81 mg DAILY PO 02/23/25 10:00 02/28/25 09:08 81 MG Atorvastatin Calcium 10 mg HS PO 02/22/25 22:00 02/28/25 21:40 10 MG Sodium Chloride 10 ml Q8HR IV 02/22/25 22:00 02/28/25 22:00 10 ML Acetaminophen/ Hydrocodone Bitart 1 tab Q4HP PRN PO 02/22/25 20:15 02/26/25 22:54 1 TAB Ondansetron HCl 4 mg Q4HP PRN IV 02/22/25 20:15 Docusate Sodium 100 mg BIDPRN PRN PO 02/22/25 20:15 Acetaminophen 650 mg Q6HP PRN PO 02/22/25 20:15 Nitroglycerin 0.4 mg Q5MINP PRN SL 02/22/25 20:45 02/23/25 02:01 0.4 MG Metoprolol Succinate 25 mg DAILY PO 02/25/25 10:00 02/28/25 09:08 25 MG Colchicine 0.6 mg DAILY PO 02/25/25 10:00 02/28/25 09:08 0.6 MG Morphine Sulfate 2 mg Q30M PRN IV 02/26/25 14:45 02/26/25 14:49 2 MG Hydromorphone HCl 0.5 mg Q6HP PRN IV 02/27/25 13:15 03/01/25 04:01 0.5 MG Albuterol 2.5 mg Q6HPRN NEB 02/28/25 15:00 02/28/25 15:53 2.5 MG laboratory and microbiology Laboratory Tests 03/01/25 06:35 02/23/25 05:21 Test 03/01/25 06:35 Range/Units Serum Glucose 95 74-106 mg/dL Assessment/Plan No episodes over night. Hemodynamically stable. This is a 54-year old male who initially presented with reported shortness of breath for approximately 1 day prior to initial presentation. Patient had initially been evaluated at [facility] for his symptoms which review of chart mentions outside imaging (CTA of Chest) had been performed at [facility] and had revealed no evidence for pulmonary embolism, cardiomegaly with presence of a moderate-sized pericardial effusion, with interlobular septal thickening possibly reflecting pulmonary edema/ascites ultimately prompting [facility] to present facility for further evaluation/management of reported pericardial effusion which cardiology services were subsequently involved. Throughout course of present admission, Echocardiogram had reported severely dilated cardiomyopathy with an LVEF of 10-15% with global LV wall hypokinesis, biatrial dilation, moderate mitral/tricuspid insufficiency, RVSP of 35-40mmHg consistent with pulmonary hypertension, in addition to presence of a moderate- sized pericardial effusion which patient has remained hemodynamically stable with no evidence for significant hypotension nor tachycardia to suggest tamponade physiology at this point. Of note, patient does mention previous history of heart failure from before that had been diagnosed a few years ago which he is reportedly managed by his primary videotape editor Dr. Cooney located in [place], [place] with last follow up approximated to be one month ago. Patient himself does report his EF was around the range of 12% from one year ago (records not available). Does mention he underwent previous angiogram within the last year which he denies any interventions/stenting (records not available). Of note, does report old history of methamphetamine use/abuse which he conveys he no longer uses. UDS at present is found negative. Mentions at one point he had been initiated on Life Vest therapy however had relinquished vest on his own which at present, LIfe Vest therapy had again been offered however patient himself has declined its use despite potential ramifications including sudden cardiac . Of note, patient does take low-dose Eliquis as outpatient which he reports having been on for a few years now initiated by his outside videotape editor however indication of anticoagulation at this point is unclear as patient himself denies any history of atrial fibrillation or previous blood clots from before. At present, does have minimal/flat elevation of high sensitive troponins (62, 71, 64, 65). 12-lead electrocardiogram had revealed sinus rhythm, PAC, QTC of 506 milliseconds, with no evidence for acute ischemic changes. Initial BNP level had been found elevated at 1065.39 which subsequent chest x-ray had revealed cardiomegaly without congestive heart failure. Denies any active chest pain, palpitations, dizziness, syncope, orthopnea, paroxysmal nocturnal dyspnea, or any further cardiac related symptoms. Cardiology services were subsequently involved by primary team request for cardiac aspects of care. Reported past medical history includes systolic heart failure and old history of previous cerebral vascular accident. Is on chronic anticoagulation Echocardiogram: severely dilated cardiomyopathy with estimated ejection fraction of 10-15%. There is a global LV wall hypokinesis. The LV has a "D-shape" consistent with RV volume and pressure overload suggestive of pulmonary HTN with estimated right ventricular systolic pressure of -35-40 mmHg. Biatrial dilation. Moderate mitral and tricuspid regurgitation. Dilated IVC suggestive of possible elevated right atrial pressure. Moderate pericardial effusion (images of echo reviewed: pericardial effusion is localized and mild to moderate in size. There is no tamponade physiology in echo images) Localized moderate pericardial effusion, no evidence for tamponade physiology Acute on chronic systolic heart failure, LVEF of 10-15% (02/23/2025) Abnormal HS troponins, assessed to reflect type II physiology Pulmonary hypertension (likely type II), RVSP of 35-40mmHg Chronically anticoagulated (Eliquis), indication unclear Moderate mitral/tricuspid insufficiency History of methamphetamine abuse Underlying renal insufficiency Old history of previous CVA QTC prolongation Anemia, stable CARDIAC SUGGESTIONS FOR MANAGEMENT: Recognizing moderate degree pericardial effusion with no evidence suggesting tamponade physiology at this point, recommend proceeding with conservative management and close observation/surveillance as for now. To proceed with diuresis as tolerated. Trial low-dose Colchicine for underlying pericardial effusion as for now. (proceed with close surveillance of CBC). Recognizing clinical presentation/objective findings in addition to report of a recent negative cardiac catheterization, minimal/flat elevation of high sensitive troponin levels are assessed to reflect an underlying component of demand ischemia (type II physiology) in the setting of acute on chronic systolic heart failure in a patient with moderate degree pericardial effusion, pulmonary hypertension, and underlying renal insufficiency for which at this point, no indication for repeat ischemic work up is warranted at present time. ACS is not considered at this point. To proceed with optimized medical therapy, risk factor modification, and GDMT as concurrent conditions permit. Discontinue previous Carvedilol and trial Metoprolol Succinate 25mg once daily as for now. ARNI/MRA held due to renal insufficiency and borderline blood pressures. Patient will need to follow up with his primary videotape editor on an outpatient basis to resume ARNI/MRA if amenable as renal function/hemodynamics permit. Recognizing LVEF of 10-15%, Life Vest had been offered for protection upon discharge however patient has declined despite potential ramifications including sudden cardiac which he is aware of the risk. Is noted to be on chronic anticoagulation (Eliquis) as outpatient which indication at this point is unclear as patient denies any history of atrial fibrillation or blood clots from before. Despite the above, as pericardial effusion is considered stable at this point, continuation of anticoagulation from a cardiac perspective can be justified. As QTC had been found prolonged, avoidance of QT prolonging agents is advised. Management of co-morbidities as per primary team. Will proceed to follow from a cardiac perspective. Diuresis GDMT for systolic heart failure Patient refused the offer for lifeVest and also evaluation for ICD. Wants to follow with his own outside Scale Model Maker for them. For now: full anticoagulation (to follow with outside Scale Model Maker) Cardiac montoya is stable and can be followed as outpatient Proceed with close observation for overt signs of fluid overload Proceed with strict intakes, outputs, and daily weights Proceed with supplemental oxygen as warranted Proceed with close rate and rhythm surveillance Proceed with close hemodynamic surveillance Proceed with optimized blood pressure control Transfuse to sustain HGB level above 9.0 Sustain Magnesium level greater than 2.0 Sustain Potassium level greater than 4.0 Follow up renal function and electrolytes Management in telemetry Will proceed to follow from a cardiac perspective Further recommendations per clinical progression All available diagnostic labs, EKG's, and images were personally reviewed Plan of care discussed with and agreed upon by patient / primary RN Prognosis: Guarded Thank you for allowing me to participate in the care of this patient. Further recommendations based on patients clinical course and progression, primary attending, and other consultants. Will continue to follow with primary attending. If you have any questions or concerns, please do not hesitate to contact me. A total of 75 minutes was spent reviewing the patient record, examining the patient, making a diagnostic and therapeutic plan, discussing this plan with medical personnel, following up on diagnostic studies and following the patient for clinical stability excluding any and all procedures. At least 50% of this time was spent in direct, [id number] contact. Plan discussed with: Patient, Other (nurse) JOSÉ LIM MD Mar 01, 2025 08:11
--- NOTE | 2025-03-01 17:14 | DVHPN2 ---
Subjective still having sob Reviewed: H&P Changes from previous H/P or p: No Changes Eyes: No Pain, No Vision change, No Conjunctivae inflammation, No Eyelid inflammation, No Other, No Redness ENT: No Ear pain, No Ear discharge, No Nose pain, No Nose discharge, No Nose congestion, No Mouth pain, No Mouth swelling, No Throat pain, No Throat swelling, No Other Cardiovascular: Chest Pain; No Palpitations, No Orthopnea, No Paroxysmal Noc. Dyspnea, No Edema, No Lt Headedness, No Other Respiratory: No Cough, No Dry; Shortness of breath; No SOB with excertion, No Wheezing, No Hemoptysis, No Pleuritic Pain, No Sputum, No Other Gastrointestinal: No Nausea, No Vomiting, No Abdominal Pain, No Diarrhea, No Constipation, No Melena, No Hematochezia, No Other Genitourinary: No Dysuria, No Frequency, No Incontinence, No Hematuria, No Retention, No Other Musculoskeletal: No other, No neck pain, No shoulder pain, No arm pain, No back pain, No hand pain, No leg pain, No foot pain Skin: No Rash, No Lesions, No Jaundice, No Bruising, No Other Objective Vitals Vital Signs Date Time Temp Pulse Resp B/P (MAP) Pulse Ox O2 Delivery O2 Flow Rate FiO2 03/01/25 16:04 73 18 103/85 03/01/25 13:00 97.3 98 97.3 03/01/25 10:00 3.0 03/01/25 10:00 Nasal Cannula* 32 Intake/Output Intake and Output 03/01/25 05:00 Intake Total 1250 ml Output Total 1000 ml Balance 250 ml Intake Oral 1250 ml Output Urine Total 1000 ml General Appearance: Alert, Oriented X3 HEENT: Atraumatic Lungs: Clear to auscultation Cardiovascular: Regular rate, Normal S1, Normal S2 Extremities: Other (LE edema) Medications Current Medications Medications Dose Ordered Sig/Lola Route Start Time Stop Time Status Last Admin Dose Admin Aspirin 81 mg DAILY PO 02/23/25 10:00 03/01/25 09:17 81 MG Atorvastatin Calcium 10 mg HS PO 02/22/25 22:00 02/28/25 21:40 10 MG Sodium Chloride 10 ml Q8HR IV 02/22/25 22:00 03/01/25 14:00 10 ML Acetaminophen/ Hydrocodone Bitart 1 tab Q4HP PRN PO 02/22/25 20:15 02/26/25 22:54 1 TAB Ondansetron HCl 4 mg Q4HP PRN IV 02/22/25 20:15 Docusate Sodium 100 mg BIDPRN PRN PO 02/22/25 20:15 Acetaminophen 650 mg Q6HP PRN PO 02/22/25 20:15 Nitroglycerin 0.4 mg Q5MINP PRN SL 02/22/25 20:45 02/23/25 02:01 0.4 MG Metoprolol Succinate 25 mg DAILY PO 02/25/25 10:00 03/01/25 09:17 25 MG Colchicine 0.6 mg DAILY PO 02/25/25 10:00 03/01/25 09:17 0.6 MG Morphine Sulfate 2 mg Q30M PRN IV 02/26/25 14:45 02/26/25 14:49 2 MG Hydromorphone HCl 0.5 mg Q6HP PRN IV 02/27/25 13:15 03/01/25 16:04 0.5 MG Albuterol 2.5 mg Q6HPRN NEB 02/28/25 15:00 02/28/25 15:53 2.5 MG Laboratory Results Laboratory Tests 02/23/25 05:21 03/01/25 06:35 Chemistry Test 03/01/25 06:35 Calcium Level 9.7 mg/dL (8.7-10.4) Urinalysis Test 02/22/25 19:57 Urine Color Light-yellow (Yellow) Urine Clarity Clear (Clear) Urine pH 6.0 (5.0-9.0) Urine Specific [place] 1.019 (1.001-1.035) Urine Protein Negative (Negative) Urine Ketones Negative (Negative) Urine Blood Negative /uL (Negative) Urine Nitrite Negative (Negative) Urine Bilirubin Negative (Negative) Urine Urobilinogen Normal mg/dL (Negative) Urine Leukocyte Esterase Negative /uL (Negative) Urine RBC <1 /hpf (0 - 3) Urine Microscopic WBC 1 /HPF (0-3) Urine Squamous Epithelial Cells None seen /hpf (<5) Urine Bacteria None seen /hpf (None Seen) Urine Glucose Normal mg/dL (Normal) Microbiology Microbiology Date/Time Source Procedure Growth Status 02/23/25 05:21 Nose MRSA Screen - Final Complete Assessment/Plan Assessment/Plan Acute systolic HF exacerbation EF 10% Elevated troponin Pericardial effusion Acute renal injury due to VMN Creat trending up to 1.8 Generalized weakness Lasix held due to worsening renal function Restart tomorrow echocardiogram EF 10-15% cardiology consulted>he has refused AICD in the past and wants to follow up with primary neurosurgery physician wean off oxygen Plan discussed with: Patient Date of Service: Mar 01, 2025 Billing Provider: JUVENCIO BRISCOE MD Common Visit Codes: [id number] INP/OBS CARE(HIGH) JUVENCIO BRISCOE MD Mar 01, 2025 17:14
[2025-03-01] MEDS: FUROSEMIDE 40 MG/4 ML VIAL IV SCH (18:35)
[2025-03-02] VITALS (11 sets, daily range): BP systolic 101–123; BP diastolic 63–80; PULSE 64–86; RESP 18–20; TEMP 97.6–98.2; O2SAT 93–100
[2025-03-02 06:43] LABS: Anion Gap 10 (5-15); Carbon Dioxide 30 mmol/L (20-31); Potassium 4.4 mmol/L (3.5-5.1)
[2025-03-02 06:44] LABS: Calcium 9.3 mg/dL (8.7-10.4)
[2025-03-02 06:49] LABS: BUN/Creatinine Ratio 23.0 (10.0-20.0); Glucose 88 mg/dL (74-106)
[2025-03-02 06:50] LABS: Blood Urea Nitrogen 35 mg/dL (9-23); Chloride 94 mmol/L (98-107); Sodium 134 mmol/L (136-145)
--- NOTE | 2025-03-02 08:37 | DVHPN2 ---
Progress Note - Dictate Date Seen: Mar 02, 2025 Medical Necessity Reason Pt with a Central, PICC or Fol: No vital signs Vital Sign Date Time Temp Pulse Resp B/P (MAP) Pulse Ox O2 Delivery O2 Flow Rate FiO2 03/02/25 05:56 129/85 03/02/25 05:00 98.1 86 18 93 98.1 03/01/25 20:00 Nasal Cannula* 3 32 Total Intake and Output 03/01/25 03/01/25 03/02/25 15:00 23:00 07:00 Intake Total 230 ml 236 ml Output Total 650 ml 475 ml Balance -420 ml -239 ml medications Current Medications Medications Dose Ordered Sig/Lola Route Start Time Stop Time Status Last Admin Dose Admin Aspirin 81 mg DAILY PO 02/23/25 10:00 03/01/25 09:17 81 MG Atorvastatin Calcium 10 mg HS PO 02/22/25 22:00 03/01/25 22:14 10 MG Sodium Chloride 10 ml Q8HR IV 02/22/25 22:00 03/02/25 05:56 10 ML Acetaminophen/ Hydrocodone Bitart 1 tab Q4HP PRN PO 02/22/25 20:15 02/26/25 22:54 1 TAB Ondansetron HCl 4 mg Q4HP PRN IV 02/22/25 20:15 Docusate Sodium 100 mg BIDPRN PRN PO 02/22/25 20:15 Acetaminophen 650 mg Q6HP PRN PO 02/22/25 20:15 Nitroglycerin 0.4 mg Q5MINP PRN SL 02/22/25 20:45 02/23/25 02:01 0.4 MG Metoprolol Succinate 25 mg DAILY PO 02/25/25 10:00 03/01/25 09:17 25 MG Colchicine 0.6 mg DAILY PO 02/25/25 10:00 03/01/25 09:17 0.6 MG Morphine Sulfate 2 mg Q30M PRN IV 02/26/25 14:45 02/26/25 14:49 2 MG Hydromorphone HCl 0.5 mg Q6HP PRN IV 02/27/25 13:15 03/02/25 02:36 0.5 MG Albuterol 2.5 mg Q6HPRN NEB 02/28/25 15:00 02/28/25 15:53 2.5 MG Furosemide 40 mg BIDD IV 03/01/25 18:00 03/02/25 05:56 40 MG laboratory and microbiology Laboratory Tests 03/02/25 04:50 02/23/25 05:21 Test 03/02/25 04:50 Range/Units Serum Glucose 88 74-106 mg/dL Assessment/Plan No episodes over night. Hemodynamically stable. This is a 54-year old male who initially presented with reported shortness of breath for approximately 1 day prior to initial presentation. Patient had initially been evaluated at [facility] for his symptoms which review of chart mentions outside imaging (CTA of Chest) had been performed at [facility] and had revealed no evidence for pulmonary embolism, cardiomegaly with presence of a moderate-sized pericardial effusion, with interlobular septal thickening possibly reflecting pulmonary edema/ascites ultimately prompting OC transfer to present facility for further evaluation/management of reported pericardial effusion which cardiology services were subsequently involved. Throughout course of present admission, Echocardiogram had reported severely dilated cardiomyopathy with an LVEF of 10-15% with global LV wall hypokinesis, biatrial dilation, moderate mitral/tricuspid insufficiency, RVSP of 35-40mmHg consistent with pulmonary hypertension, in addition to presence of a moderate- sized pericardial effusion which patient has remained hemodynamically stable with no evidence for significant hypotension nor tachycardia to suggest tamponade physiology at this point. Of note, patient does mention previous history of heart failure from before that had been diagnosed a few years ago which he is reportedly managed by his primary oil pipeline dispatcher Dr. Cooney located in [place], [place] with last follow up approximated to be one month ago. Patient himself does report his EF was around the range of 12% from one year ago (records not available). Does mention he underwent previous angiogram within the last year which he denies any interventions/stenting (records not available). Of note, does report old history of methamphetamine use/abuse which he conveys he no longer uses. UDS at present is found negative. Mentions at one point he had been initiated on Life Vest therapy however had relinquished vest on his own which at present, LIfe Vest therapy had again been offered however patient himself has declined its use despite potential ramifications including sudden cardiac . Of note, patient does take low-dose Eliquis as outpatient which he reports having been on for a few years now initiated by his outside oil pipeline dispatcher however indication of anticoagulation at this point is unclear as patient himself denies any history of atrial fibrillation or previous blood clots from before. At present, does have minimal/flat elevation of high sensitive troponins (62, 71, 64, 65). 12-lead electrocardiogram had revealed sinus rhythm, PAC, QTC of 506 milliseconds, with no evidence for acute ischemic changes. Initial BNP level had been found elevated at 1065.39 which subsequent chest x-ray had revealed cardiomegaly without congestive heart failure. Denies any active chest pain, palpitations, dizziness, syncope, orthopnea, paroxysmal nocturnal dyspnea, or any further cardiac related symptoms. Cardiology services were subsequently involved by primary team request for cardiac aspects of care. Reported past medical history includes systolic heart failure and old history of previous cerebral vascular accident. Is on chronic anticoagulation Echocardiogram: severely dilated cardiomyopathy with estimated ejection fraction of 10-15%. There is a global LV wall hypokinesis. The LV has a "D-shape" consistent with RV volume and pressure overload suggestive of pulmonary HTN with estimated right ventricular systolic pressure of -35-40 mmHg. Biatrial dilation. Moderate mitral and tricuspid regurgitation. Dilated IVC suggestive of possible elevated right atrial pressure. Moderate pericardial effusion (images of echo reviewed: pericardial effusion is localized and mild to moderate in size. There is no tamponade physiology in echo images) Localized moderate pericardial effusion, no evidence for tamponade physiology Acute on chronic systolic heart failure, LVEF of 10-15% (02/23/2025) Abnormal HS troponins, assessed to reflect type II physiology Pulmonary hypertension (likely type II), RVSP of 35-40mmHg Chronically anticoagulated (Eliquis), indication unclear Moderate mitral/tricuspid insufficiency History of methamphetamine abuse Underlying renal insufficiency Old history of previous CVA QTC prolongation Anemia, stable CARDIAC SUGGESTIONS FOR MANAGEMENT: Recognizing moderate degree pericardial effusion with no evidence suggesting tamponade physiology at this point, recommend proceeding with conservative management and close observation/surveillance as for now. To proceed with diuresis as tolerated. Trial low-dose Colchicine for underlying pericardial effusion as for now. (proceed with close surveillance of CBC). Recognizing clinical presentation/objective findings in addition to report of a recent negative cardiac catheterization, minimal/flat elevation of high sensitive troponin levels are assessed to reflect an underlying component of demand ischemia (type II physiology) in the setting of acute on chronic systolic heart failure in a patient with moderate degree pericardial effusion, pulmonary hypertension, and underlying renal insufficiency for which at this point, no indication for repeat ischemic work up is warranted at present time. ACS is not considered at this point. To proceed with optimized medical therapy, risk factor modification, and GDMT as concurrent conditions permit. Discontinue previous Carvedilol and trial Metoprolol Succinate 25mg once daily as for now. ARNI/MRA held due to renal insufficiency and borderline blood pressures. Patient will need to follow up with his primary oil pipeline dispatcher on an outpatient basis to resume ARNI/MRA if amenable as renal function/hemodynamics permit. Recognizing LVEF of 10-15%, Life Vest had been offered for protection upon discharge however patient has declined despite potential ramifications including sudden cardiac which he is aware of the risk. Is noted to be on chronic anticoagulation (Eliquis) as outpatient which indication at this point is unclear as patient denies any history of atrial fibrillation or blood clots from before. Despite the above, as pericardial effusion is considered stable at this point, continuation of anticoagulation from a cardiac perspective can be justified. As QTC had been found prolonged, avoidance of QT prolonging agents is advised. Management of co-morbidities as per primary team. Will proceed to follow from a cardiac perspective. Diuresis GDMT for systolic heart failure Patient refused the offer for lifeVest and also evaluation for ICD. Wants to follow with his own outside Ld Teacher for them. For now: full anticoagulation (to follow with outside Ld Teacher) Cardiac montoya is stable and can be followed as outpatient Proceed with close observation for overt signs of fluid overload Proceed with strict intakes, outputs, and daily weights Proceed with supplemental oxygen as warranted Proceed with close rate and rhythm surveillance Proceed with close hemodynamic surveillance Proceed with optimized blood pressure control Transfuse to sustain HGB level above 9.0 Sustain Magnesium level greater than 2.0 Sustain Potassium level greater than 4.0 Follow up renal function and electrolytes Management in telemetry Will proceed to follow from a cardiac perspective Further recommendations per clinical progression All available diagnostic labs, EKG's, and images were personally reviewed Plan of care discussed with and agreed upon by patient / primary RN Prognosis: Guarded Thank you for allowing me to participate in the care of this patient. Further recommendations based on patients clinical course and progression, primary attending, and other consultants. Will continue to follow with primary attending. If you have any questions or concerns, please do not hesitate to contact me. A total of 75 minutes was spent reviewing the patient record, examining the patient, making a diagnostic and therapeutic plan, discussing this plan with medical personnel, following up on diagnostic studies and following the patient for clinical stability excluding any and all procedures. At least 50% of this time was spent in direct, [id number] contact. Plan discussed with: Other (nurse) JOSÉ LIM MD Mar 02, 2025 08:37
--- NOTE | 2025-03-02 13:18 | DVHPN2 ---
Subjective still having sob Reviewed: H&P Changes from previous H/P or p: No Changes Eyes: No Pain, No Vision change, No Conjunctivae inflammation, No Eyelid inflammation, No Other, No Redness ENT: No Ear pain, No Ear discharge, No Nose pain, No Nose discharge, No Nose congestion, No Mouth pain, No Mouth swelling, No Throat pain, No Throat swelling, No Other Cardiovascular: Chest Pain; No Palpitations, No Orthopnea, No Paroxysmal Noc. Dyspnea, No Edema, No Lt Headedness, No Other Respiratory: No Cough, No Dry; Shortness of breath; No SOB with excertion, No Wheezing, No Hemoptysis, No Pleuritic Pain, No Sputum, No Other Gastrointestinal: No Nausea, No Vomiting, No Abdominal Pain, No Diarrhea, No Constipation, No Melena, No Hematochezia, No Other Genitourinary: No Dysuria, No Frequency, No Incontinence, No Hematuria, No Retention, No Other Musculoskeletal: No other, No neck pain, No shoulder pain, No arm pain, No back pain, No hand pain, No leg pain, No foot pain Skin: No Rash, No Lesions, No Jaundice, No Bruising, No Other Objective Vitals Vital Signs Date Time Temp Pulse Resp B/P (MAP) Pulse Ox O2 Delivery O2 Flow Rate FiO2 03/02/25 10:35 73 16 114/80 03/02/25 10:00 96 Nasal Cannula 2.0 03/02/25 10:00 28 03/02/25 09:00 98.1 98.1 Intake/Output Intake and Output 03/02/25 07:00 Intake Total 466 ml Output Total 1125 ml Balance -659 ml Intake Oral 466 ml Output Urine Total 1125 ml General Appearance: Alert, Oriented X3 HEENT: Atraumatic Lungs: Clear to auscultation Cardiovascular: Regular rate, Normal S1, Normal S2 Extremities: Other (LE edema) Medications Current Medications Medications Dose Ordered Sig/Lola Route Start Time Stop Time Status Last Admin Dose Admin Aspirin 81 mg DAILY PO 02/23/25 10:00 03/02/25 09:41 81 MG Atorvastatin Calcium 10 mg HS PO 02/22/25 22:00 03/01/25 22:14 10 MG Sodium Chloride 10 ml Q8HR IV 02/22/25 22:00 03/02/25 05:56 10 ML Acetaminophen/ Hydrocodone Bitart 1 tab Q4HP PRN PO 02/22/25 20:15 02/26/25 22:54 1 TAB Ondansetron HCl 4 mg Q4HP PRN IV 02/22/25 20:15 Docusate Sodium 100 mg BIDPRN PRN PO 02/22/25 20:15 Acetaminophen 650 mg Q6HP PRN PO 02/22/25 20:15 Nitroglycerin 0.4 mg Q5MINP PRN SL 02/22/25 20:45 02/23/25 02:01 0.4 MG Metoprolol Succinate 25 mg DAILY PO 02/25/25 10:00 03/02/25 09:41 25 MG Colchicine 0.6 mg DAILY PO 02/25/25 10:00 03/02/25 09:40 0.6 MG Morphine Sulfate 2 mg Q30M PRN IV 02/26/25 14:45 02/26/25 14:49 2 MG Hydromorphone HCl 0.5 mg Q6HP PRN IV 02/27/25 13:15 03/02/25 10:35 0.5 MG Albuterol 2.5 mg Q6HPRN NEB 02/28/25 15:00 02/28/25 15:53 2.5 MG Furosemide 40 mg BIDD IV 03/01/25 18:00 03/02/25 05:56 40 MG Laboratory Results Laboratory Tests 02/23/25 05:21 03/02/25 04:50 Chemistry Test 03/02/25 04:50 Calcium Level 9.3 mg/dL (8.7-10.4) Urinalysis Test 02/22/25 19:57 Urine Color Light-yellow (Yellow) Urine Clarity Clear (Clear) Urine pH 6.0 (5.0-9.0) Urine Specific [place] 1.019 (1.001-1.035) Urine Protein Negative (Negative) Urine Ketones Negative (Negative) Urine Blood Negative /uL (Negative) Urine Nitrite Negative (Negative) Urine Bilirubin Negative (Negative) Urine Urobilinogen Normal mg/dL (Negative) Urine Leukocyte Esterase Negative /uL (Negative) Urine RBC <1 /hpf (0 - 3) Urine Microscopic WBC 1 /HPF (0-3) Urine Squamous Epithelial Cells None seen /hpf (<5) Urine Bacteria None seen /hpf (None Seen) Urine Glucose Normal mg/dL (Normal) Microbiology Microbiology Date/Time Source Procedure Growth Status 02/23/25 05:21 Nose MRSA Screen - Final Complete Assessment/Plan Assessment/Plan Acute systolic HF exacerbation EF 10% Elevated troponin Pericardial effusion Acute renal injury due to VMN Creat trending up to 1.8 Generalized weakness Lasix held due to worsening renal function Restart tomorrow echocardiogram EF 10-15% cardiology consulted>he has refused AICD in the past and wants to follow up with primary order entry technician wean off oxygen Plan discussed with: Patient My Orders Orders - JUVENCIO BRISCOE MD Procedure Category Date Status Time Furosemide Injection PHA 03/01/25 In Process (Lasix Injection) 18:00 Date of Service: Mar 02, 2025 Billing Provider: JUVENCIO BRISCOE MD Common Visit Codes: [id number] INP/OBS CARE(HIGH) JUVENCIO BRISCOE MD Mar 02, 2025 13:18
[2025-03-03] VITALS (11 sets, daily range): BP systolic 89–136; BP diastolic 62–104; PULSE 68–85; RESP 15–20; TEMP 97.3–98.2; O2SAT 93–99
[2025-03-03 08:05] LABS: Anion Gap 10 (5-15); Calcium 9.4 mg/dL (8.7-10.4); Potassium 4.0 mmol/L (3.5-5.1); Sodium 138 mmol/L (136-145)
[2025-03-03 08:10] LABS: Carbon Dioxide 34 mmol/L (20-31); Chloride 94 mmol/L (98-107)
[2025-03-03 08:11] LABS: BUN/Creatinine Ratio 25.9 (10.0-20.0); Blood Urea Nitrogen 42 mg/dL (9-23); Glucose 80 mg/dL (74-106)
--- NOTE | 2025-03-03 09:48 | DVHPN2 ---
Progress Note - Dictate Date Seen: Mar 03, 2025 Medical Necessity Reason Pt with a Central, PICC or Fol: No vital signs Vital Sign Date Time Temp Pulse Resp B/P (MAP) Pulse Ox O2 Delivery O2 Flow Rate FiO2 03/03/25 09:30 71 18 89/62 97 2.0 28 03/03/25 07:25 Nasal Cannula 03/03/25 04:52 97.8 97.8 Total Intake and Output 03/02/25 03/02/25 03/03/25 15:00 23:00 07:00 Intake Total 1887 ml 1200 ml Output Total 2000 ml 1400 ml Balance -113 ml -200 ml medications Current Medications Medications Dose Ordered Sig/Lola Route Start Time Stop Time Status Last Admin Dose Admin Aspirin 81 mg DAILY PO 02/23/25 10:00 03/02/25 09:41 81 MG Atorvastatin Calcium 10 mg HS PO 02/22/25 22:00 03/02/25 21:39 10 MG Sodium Chloride 10 ml Q8HR IV 02/22/25 22:00 03/03/25 06:10 10 ML Acetaminophen/ Hydrocodone Bitart 1 tab Q4HP PRN PO 02/22/25 20:15 02/26/25 22:54 1 TAB Ondansetron HCl 4 mg Q4HP PRN IV 02/22/25 20:15 Docusate Sodium 100 mg BIDPRN PRN PO 02/22/25 20:15 Acetaminophen 650 mg Q6HP PRN PO 02/22/25 20:15 Nitroglycerin 0.4 mg Q5MINP PRN SL 02/22/25 20:45 02/23/25 02:01 0.4 MG Metoprolol Succinate 25 mg DAILY PO 02/25/25 10:00 03/02/25 09:41 25 MG Colchicine 0.6 mg DAILY PO 02/25/25 10:00 03/02/25 09:40 0.6 MG Morphine Sulfate 2 mg Q30M PRN IV 02/26/25 14:45 02/26/25 14:49 2 MG Hydromorphone HCl 0.5 mg Q6HP PRN IV 02/27/25 13:15 03/03/25 05:34 0.5 MG Albuterol 2.5 mg Q6HPRN NEB 02/28/25 15:00 02/28/25 15:53 2.5 MG Furosemide 40 mg BIDD IV 03/01/25 18:00 03/02/25 17:46 40 MG laboratory and microbiology Laboratory Tests 03/03/25 05:32 02/23/25 05:21 Test 03/03/25 05:32 Range/Units Serum Glucose 80 74-106 mg/dL Assessment/Plan No episodes over night. Hemodynamically stable. This is a 54-year old male who initially presented with reported shortness of breath for approximately 1 day prior to initial presentation. Patient had initially been evaluated at [facility] for his symptoms which review of chart mentions outside imaging (CTA of Chest) had been performed at [facility] and had revealed no evidence for pulmonary embolism, cardiomegaly with presence of a moderate-sized pericardial effusion, with interlobular septal thickening possibly reflecting pulmonary edema/ascites ultimately prompting [facility] transfer to present facility for further evaluation/management of reported pericardial effusion which cardiology services were subsequently involved. Throughout course of present admission, Echocardiogram had reported severely dilated cardiomyopathy with an LVEF of 10-15% with global LV wall hypokinesis, biatrial dilation, moderate mitral/tricuspid insufficiency, RVSP of 35-40mmHg consistent with pulmonary hypertension, in addition to presence of a moderate- sized pericardial effusion which patient has remained hemodynamically stable with no evidence for significant hypotension nor tachycardia to suggest tamponade physiology at this point. Of note, patient does mention previous history of heart failure from before that had been diagnosed a few years ago which he is reportedly managed by his primary airveyor operator Dr. Cooney located in [place], [place] with last follow up approximated to be one month ago. Patient himself does report his EF was around the range of 12% from one year ago (records not available). Does mention he underwent previous angiogram within the last year which he denies any interventions/stenting (records not available). Of note, does report old history of methamphetamine use/abuse which he conveys he no longer uses. UDS at present is found negative. Mentions at one point he had been initiated on Life Vest therapy however had relinquished vest on his own which at present, LIfe Vest therapy had again been offered however patient himself has declined its use despite potential ramifications including sudden cardiac . Of note, patient does take low-dose Eliquis as outpatient which he reports having been on for a few years now initiated by his outside airveyor operator however indication of anticoagulation at this point is unclear as patient himself denies any history of atrial fibrillation or previous blood clots from before. At present, does have minimal/flat elevation of high sensitive troponins (62, 71, 64, 65). 12-lead electrocardiogram had revealed sinus rhythm, PAC, QTC of 506 milliseconds, with no evidence for acute ischemic changes. Initial BNP level had been found elevated at 1065.39 which subsequent chest x-ray had revealed cardiomegaly without congestive heart failure. Denies any active chest pain, palpitations, dizziness, syncope, orthopnea, paroxysmal nocturnal dyspnea, or any further cardiac related symptoms. Cardiology services were subsequently involved by primary team request for cardiac aspects of care. Reported past medical history includes systolic heart failure and old history of previous cerebral vascular accident. Is on chronic anticoagulation Echocardiogram: severely dilated cardiomyopathy with estimated ejection fraction of 10-15%. There is a global LV wall hypokinesis. The LV has a "D-shape" consistent with RV volume and pressure overload suggestive of pulmonary HTN with estimated right ventricular systolic pressure of -35-40 mmHg. Biatrial dilation. Moderate mitral and tricuspid regurgitation. Dilated IVC suggestive of possible elevated right atrial pressure. Moderate pericardial effusion (images of echo reviewed: pericardial effusion is localized and mild to moderate in size. There is no tamponade physiology in echo images) Localized moderate pericardial effusion, no evidence for tamponade physiology Acute on chronic systolic heart failure, LVEF of 10-15% (02/23/2025) Abnormal HS troponins, assessed to reflect type II physiology Pulmonary hypertension (likely type II), RVSP of 35-40mmHg Chronically anticoagulated (Eliquis), indication unclear Moderate mitral/tricuspid insufficiency History of methamphetamine abuse Underlying renal insufficiency Old history of previous CVA QTC prolongation Anemia, stable CARDIAC SUGGESTIONS FOR MANAGEMENT: Recognizing moderate degree pericardial effusion with no evidence suggesting tamponade physiology at this point, recommend proceeding with conservative management and close observation/surveillance as for now. To proceed with diuresis as tolerated. Trial low-dose Colchicine for underlying pericardial effusion as for now. (proceed with close surveillance of CBC). Recognizing clinical presentation/objective findings in addition to report of a recent negative cardiac catheterization, minimal/flat elevation of high sensitive troponin levels are assessed to reflect an underlying component of demand ischemia (type II physiology) in the setting of acute on chronic systolic heart failure in a patient with moderate degree pericardial effusion, pulmonary hypertension, and underlying renal insufficiency for which at this point, no indication for repeat ischemic work up is warranted at present time. ACS is not considered at this point. To proceed with optimized medical therapy, risk factor modification, and GDMT as concurrent conditions permit. Discontinue previous Carvedilol and trial Metoprolol Succinate 25mg once daily as for now. ARNI/MRA held due to renal insufficiency and borderline blood pressures. Patient will need to follow up with his primary airveyor operator on an outpatient basis to resume ARNI/MRA if amenable as renal function/hemodynamics permit. Recognizing LVEF of 10-15%, Life Vest had been offered for protection upon discharge however patient has declined despite potential ramifications including sudden cardiac which he is aware of the risk. Is noted to be on chronic anticoagulation (Eliquis) as outpatient which indication at this point is unclear as patient denies any history of atrial fibrillation or blood clots from before. Despite the above, as pericardial effusion is considered stable at this point, continuation of anticoagulation from a cardiac perspective can be justified. As QTC had been found prolonged, avoidance of QT prolonging agents is advised. Management of co-morbidities as per primary team. Will proceed to follow from a cardiac perspective. Diuresis GDMT for systolic heart failure Patient refused the offer for lifeVest and also evaluation for ICD. Wants to follow with his own outside Continuous Washer Operator for them. For now: full anticoagulation (to follow with outside Continuous Washer Operator) Cardiac montoya is stable and can be followed as outpatient Proceed with close observation for overt signs of fluid overload Proceed with strict intakes, outputs, and daily weights Proceed with supplemental oxygen as warranted Proceed with close rate and rhythm surveillance Proceed with close hemodynamic surveillance Proceed with optimized blood pressure control Transfuse to sustain HGB level above 9.0 Sustain Magnesium level greater than 2.0 Sustain Potassium level greater than 4.0 Follow up renal function and electrolytes Management in telemetry Will proceed to follow from a cardiac perspective Further recommendations per clinical progression All available diagnostic labs, EKG's, and images were personally reviewed Plan of care discussed with and agreed upon by patient / primary RN Prognosis: Guarded Thank you for allowing me to participate in the care of this patient. Further recommendations based on patients clinical course and progression, primary attending, and other consultants. Will continue to follow with primary attending. If you have any questions or concerns, please do not hesitate to contact me. A total of 75 minutes was spent reviewing the patient record, examining the patient, making a diagnostic and therapeutic plan, discussing this plan with medical personnel, following up on diagnostic studies and following the patient for clinical stability excluding any and all procedures. At least 50% of this time was spent in direct, [id number] contact. Plan discussed with: Patient, Other (nurse) JOSÉ LIM MD Mar 03, 2025 09:48
--- NOTE | 2025-03-03 16:07 | DVHPN2 ---
Subjective still having sob Reviewed: H&P Changes from previous H/P or p: No Changes Eyes: No Pain, No Vision change, No Conjunctivae inflammation, No Eyelid inflammation, No Other, No Redness ENT: No Ear pain, No Ear discharge, No Nose pain, No Nose discharge, No Nose congestion, No Mouth pain, No Mouth swelling, No Throat pain, No Throat swelling, No Other Cardiovascular: Chest Pain; No Palpitations, No Orthopnea, No Paroxysmal Noc. Dyspnea, No Edema, No Lt Headedness, No Other Respiratory: No Cough, No Dry; Shortness of breath; No SOB with excertion, No Wheezing, No Hemoptysis, No Pleuritic Pain, No Sputum, No Other Gastrointestinal: No Nausea, No Vomiting, No Abdominal Pain, No Diarrhea, No Constipation, No Melena, No Hematochezia, No Other Genitourinary: No Dysuria, No Frequency, No Incontinence, No Hematuria, No Retention, No Other Musculoskeletal: No other, No neck pain, No shoulder pain, No arm pain, No back pain, No hand pain, No leg pain, No foot pain Skin: No Rash, No Lesions, No Jaundice, No Bruising, No Other Objective Vitals Vital Signs Date Time Temp Pulse Resp B/P (MAP) Pulse Ox O2 Delivery O2 Flow Rate FiO2 03/03/25 13:00 97.5 76 17 117/79 (92) 97 97.5 03/03/25 10:00 Nasal Cannula 2.0 03/03/25 10:00 28 Intake/Output Intake and Output 03/03/25 05:00 Intake Total 3087 ml Output Total 3400 ml Balance -313 ml Intake Oral 3087 ml Output Urine Total 3400 ml General Appearance: Alert, Oriented X3 HEENT: Atraumatic Lungs: Clear to auscultation Cardiovascular: Regular rate, Normal S1, Normal S2 Extremities: Other (LE edema) Medications Current Medications Medications Dose Ordered Sig/Lola Route Start Time Stop Time Status Last Admin Dose Admin Aspirin 81 mg DAILY PO 02/23/25 10:00 03/03/25 09:54 81 MG Atorvastatin Calcium 10 mg HS PO 02/22/25 22:00 03/02/25 21:39 10 MG Sodium Chloride 10 ml Q8HR IV 02/22/25 22:00 03/03/25 14:00 10 ML Acetaminophen/ Hydrocodone Bitart 1 tab Q4HP PRN PO 02/22/25 20:15 02/26/25 22:54 1 TAB Ondansetron HCl 4 mg Q4HP PRN IV 02/22/25 20:15 Docusate Sodium 100 mg BIDPRN PRN PO 02/22/25 20:15 Acetaminophen 650 mg Q6HP PRN PO 02/22/25 20:15 Nitroglycerin 0.4 mg Q5MINP PRN SL 02/22/25 20:45 02/23/25 02:01 0.4 MG Metoprolol Succinate 25 mg DAILY PO 02/25/25 10:00 03/02/25 09:41 25 MG Colchicine 0.6 mg DAILY PO 02/25/25 10:00 03/03/25 09:54 0.6 MG Morphine Sulfate 2 mg Q30M PRN IV 02/26/25 14:45 02/26/25 14:49 2 MG Hydromorphone HCl 0.5 mg Q6HP PRN IV 02/27/25 13:15 03/03/25 10:56 0.5 MG Albuterol 2.5 mg Q6HPRN NEB 02/28/25 15:00 02/28/25 15:53 2.5 MG Furosemide 40 mg BIDD IV 03/01/25 18:00 03/02/25 17:46 40 MG Laboratory Results Laboratory Tests 02/23/25 05:21 03/03/25 05:32 Chemistry Test 03/03/25 05:32 Calcium Level 9.4 mg/dL (8.7-10.4) Urinalysis Test 02/22/25 19:57 Urine Color Light-yellow (Yellow) Urine Clarity Clear (Clear) Urine pH 6.0 (5.0-9.0) Urine Specific [place] 1.019 (1.001-1.035) Urine Protein Negative (Negative) Urine Ketones Negative (Negative) Urine Blood Negative /uL (Negative) Urine Nitrite Negative (Negative) Urine Bilirubin Negative (Negative) Urine Urobilinogen Normal mg/dL (Negative) Urine Leukocyte Esterase Negative /uL (Negative) Urine RBC <1 /hpf (0 - 3) Urine Microscopic WBC 1 /HPF (0-3) Urine Squamous Epithelial Cells None seen /hpf (<5) Urine Bacteria None seen /hpf (None Seen) Urine Glucose Normal mg/dL (Normal) Microbiology Microbiology Date/Time Source Procedure Growth Status 02/23/25 05:21 Nose MRSA Screen - Final Complete Assessment/Plan Assessment/Plan Acute systolic HF exacerbation EF 10% Elevated troponin Pericardial effusion Acute renal injury due to VMN Creat trending up to 1.8 Generalized weakness Restarted lasix echocardiogram EF 10-15% cardiology consulted>he has refused AICD in the past and wants to follow up with primary communications instructor wean off oxygen Plan discussed with: Patient Date of Service: Mar 03, 2025 Billing Provider: JUVENCIO BRISCOE MD Common Visit Codes: [id number] INP/OBS CARE(HIGH) JUVENCIO BRISCOE MD Mar 03, 2025 16:07
[2025-03-04] VITALS (10 sets, daily range): BP systolic 103–122; BP diastolic 66–90; PULSE 49–89; RESP 14–20; TEMP 97.8–98.9; O2SAT 94–100
--- NOTE | 2025-03-04 08:31 | DVHPN2 ---
Progress Note - Dictate Date Seen: Mar 04, 2025 Medical Necessity Reason Pt with a Central, PICC or Fol: No vital signs Vital Sign Date Time Temp Pulse Resp B/P (MAP) Pulse Ox O2 Delivery O2 Flow Rate FiO2 03/04/25 07:11 97 Nasal Cannula* 1 24 03/04/25 05:58 80 18 100/70 03/04/25 04:47 98.6 98.6 Total Intake and Output 03/03/25 03/03/25 03/04/25 15:00 23:00 07:00 Intake Total 500 ml 1400 ml Output Total 625 ml 1640 ml Balance -125 ml -240 ml medications Current Medications Medications Dose Ordered Sig/Lola Route Start Time Stop Time Status Last Admin Dose Admin Aspirin 81 mg DAILY PO 02/23/25 10:00 03/03/25 09:54 81 MG Atorvastatin Calcium 10 mg HS PO 02/22/25 22:00 03/03/25 21:17 10 MG Sodium Chloride 10 ml Q8HR IV 02/22/25 22:00 03/04/25 06:34 10 ML Ondansetron HCl 4 mg Q4HP PRN IV 02/22/25 20:15 Docusate Sodium 100 mg BIDPRN PRN PO 02/22/25 20:15 Acetaminophen 650 mg Q6HP PRN PO 02/22/25 20:15 Nitroglycerin 0.4 mg Q5MINP PRN SL 02/22/25 20:45 02/23/25 02:01 0.4 MG Metoprolol Succinate 25 mg DAILY PO 02/25/25 10:00 03/02/25 09:41 25 MG Colchicine 0.6 mg DAILY PO 02/25/25 10:00 03/03/25 09:54 0.6 MG Morphine Sulfate 2 mg Q30M PRN IV 02/26/25 14:45 02/26/25 14:49 2 MG Hydromorphone HCl 0.5 mg Q6HP PRN IV 02/27/25 13:15 03/04/25 05:28 0.5 MG Albuterol 2.5 mg Q6HPRN NEB 02/28/25 15:00 03/04/25 07:10 2.5 MG Furosemide 40 mg BIDD IV 03/01/25 18:00 03/04/25 05:28 40 MG laboratory and microbiology Laboratory Tests 03/03/25 05:32 02/23/25 05:21 Test 03/03/25 05:32 Range/Units Serum Glucose 80 74-106 mg/dL Assessment/Plan Hemodynamically stable. This is a 54-year old male who initially presented with reported shortness of breath for approximately 1 day prior to initial presentation. Patient had initially been evaluated at [facility] for his symptoms which review of chart mentions outside imaging (CTA of Chest) had been performed at [facility] and had revealed no evidence for pulmonary embolism, cardiomegaly with presence of a moderate-sized pericardial effusion, with interlobular septal thickening possibly reflecting pulmonary edema/ascites ultimately prompting [facility] transfer to present facility for further evaluation/management of reported pericardial effusion which cardiology services were subsequently involved. Throughout course of present admission, Echocardiogram had reported severely dilated cardiomyopathy with an LVEF of 10-15% with global LV wall hypokinesis, biatrial dilation, moderate mitral/tricuspid insufficiency, RVSP of 35-40mmHg consistent with pulmonary hypertension, in addition to presence of a moderate- sized pericardial effusion which patient has remained hemodynamically stable with no evidence for significant hypotension nor tachycardia to suggest tamponade physiology at this point. Of note, patient does mention previous history of heart failure from before that had been diagnosed a few years ago which he is reportedly managed by his primary program counselor Dr. Cooney located in [place], [place] with last follow up approximated to be one month ago. Patient himself does report his EF was around the range of 12% from one year ago (records not available). Does mention he underwent previous angiogram within the last year which he denies any interventions/stenting (records not available). Of note, does report old history of methamphetamine use/abuse which he conveys he no longer uses. UDS at present is found negative. Mentions at one point he had been initiated on Life Vest therapy however had relinquished vest on his own which at present, LIfe Vest therapy had again been offered however patient himself has declined its use despite potential ramifications including sudden cardiac . Of note, patient does take low-dose Eliquis as outpatient which he reports having been on for a few years now initiated by his outside program counselor however indication of anticoagulation at this point is unclear as patient himself denies any history of atrial fibrillation or previous blood clots from before. At present, does have minimal/flat elevation of high sensitive troponins (62, 71, 64, 65). 12-lead electrocardiogram had revealed sinus rhythm, PAC, QTC of 506 milliseconds, with no evidence for acute ischemic changes. Initial BNP level had been found elevated at 1065.39 which subsequent chest x-ray had revealed cardiomegaly without congestive heart failure. Denies any active chest pain, palpitations, dizziness, syncope, orthopnea, paroxysmal nocturnal dyspnea, or any further cardiac related symptoms. Cardiology services were subsequently involved by primary team request for cardiac aspects of care. Reported past medical history includes systolic heart failure and old history of previous cerebral vascular accident. Is on chronic anticoagulation Echocardiogram: severely dilated cardiomyopathy with estimated ejection fraction of 10-15%. There is a global LV wall hypokinesis. The LV has a "D-shape" consistent with RV volume and pressure overload suggestive of pulmonary HTN with estimated right ventricular systolic pressure of -35-40 mmHg. Biatrial dilation. Moderate mitral and tricuspid regurgitation. Dilated IVC suggestive of possible elevated right atrial pressure. Moderate pericardial effusion (images of echo reviewed: pericardial effusion is localized and mild to moderate in size. There is no tamponade physiology in echo images) Localized moderate pericardial effusion, no evidence for tamponade physiology Acute on chronic systolic heart failure, LVEF of 10-15% (02/23/2025) Abnormal HS troponins, assessed to reflect type II physiology Pulmonary hypertension (likely type II), RVSP of 35-40mmHg Chronically anticoagulated (Eliquis), indication unclear Moderate mitral/tricuspid insufficiency History of methamphetamine abuse Underlying renal insufficiency Old history of previous CVA QTC prolongation Anemia, stable CARDIAC SUGGESTIONS FOR MANAGEMENT: Recognizing moderate degree pericardial effusion with no evidence suggesting tamponade physiology at this point, recommend proceeding with conservative management and close observation/surveillance as for now. To proceed with diuresis as tolerated. Trial low-dose Colchicine for underlying pericardial effusion as for now. (proceed with close surveillance of CBC). Recognizing clinical presentation/objective findings in addition to report of a recent negative cardiac catheterization, minimal/flat elevation of high sensitive troponin levels are assessed to reflect an underlying component of demand ischemia (type II physiology) in the setting of acute on chronic systolic heart failure in a patient with moderate degree pericardial effusion, pulmonary hypertension, and underlying renal insufficiency for which at this point, no indication for repeat ischemic work up is warranted at present time. ACS is not considered at this point. To proceed with optimized medical therapy, risk factor modification, and GDMT as concurrent conditions permit. Discontinue previous Carvedilol and trial Metoprolol Succinate 25mg once daily as for now. ARNI/MRA held due to renal insufficiency and borderline blood pressures. Patient will need to follow up with his primary program counselor on an outpatient basis to resume ARNI/MRA if amenable as renal function/hemodynamics permit. Recognizing LVEF of 10-15%, Life Vest had been offered for protection upon discharge however patient has declined despite potential ramifications including sudden cardiac which he is aware of the risk. Is noted to be on chronic anticoagulation (Eliquis) as outpatient which indication at this point is unclear as patient denies any history of atrial fibrillation or blood clots from before. Despite the above, as pericardial effusion is considered stable at this point, continuation of anticoagulation from a cardiac perspective can be justified. As QTC had been found prolonged, avoidance of QT prolonging agents is advised. Management of co-morbidities as per primary team. Will proceed to follow from a cardiac perspective. Diuresis GDMT for systolic heart failure Patient refused the offer for lifeVest and also evaluation for ICD. Wants to follow with his own outside Nephrology Social Worker for them. For now: full anticoagulation (to follow with outside Nephrology Social Worker) Cardiac montoya is stable and can be followed as outpatient Proceed with close observation for overt signs of fluid overload Proceed with strict intakes, outputs, and daily weights Proceed with supplemental oxygen as warranted Proceed with close rate and rhythm surveillance Proceed with close hemodynamic surveillance Proceed with optimized blood pressure control Transfuse to sustain HGB level above 9.0 Sustain Magnesium level greater than 2.0 Sustain Potassium level greater than 4.0 Follow up renal function and electrolytes Management in telemetry Will proceed to follow from a cardiac perspective Further recommendations per clinical progression All available diagnostic labs, EKG's, and images were personally reviewed Plan of care discussed with and agreed upon by patient / primary RN Prognosis: Guarded Thank you for allowing me to participate in the care of this patient. Further recommendations based on patients clinical course and progression, primary attending, and other consultants. Will continue to follow with primary attending. If you have any questions or concerns, please do not hesitate to contact me. A total of 75 minutes was spent reviewing the patient record, examining the patient, making a diagnostic and therapeutic plan, discussing this plan with medical personnel, following up on diagnostic studies and following the patient for clinical stability excluding any and all procedures. At least 50% of this time was spent in direct, [id number] contact. Plan discussed with: Patient, Other (nurse) JOSÉ LIM MD Mar 04, 2025 08:31
--- NOTE | 2025-03-04 15:19 | DVHDS2 ---
Discharge Summary Date of Admission Feb 22, 2025 at 20:34 Date of Discharge: Mar 04, 2025 Labs/Diagnostic Data: Laboratory Results Test 03/03/25 05:32 02/23/25 21:52 02/23/25 05:21 02/22/25 23:48 Sodium Level 138 mmol/L (136-145) Potassium Level 4.0 mmol/L (3.5-5.1) Chloride Level 94 mmol/L (98-107) Carbon Dioxide Level 34 mmol/L (20-31) Anion Gap 10 (5-15) Blood Urea Nitrogen 42 mg/dL (9-23) Creatinine 1.62 mg/dL (0.700-1.30) Glomerular Filtration Rate Calc 50 mL/min (>90) BUN/Creatinine Ratio 25.9 (10.0-20.0) Serum Glucose 80 mg/dL (74-106) Calcium Level 9.4 mg/dL (8.7-10.4) Urine Opiates Screen Neg (NEGATIVE) Urine Fentanyl Screen Neg (NEGATIVE) Urine Barbiturates Screen Neg (NEGATIVE) Urine Phencyclidine Screen Neg (NEGATIVE) Urine Amphetamines Screen Neg (NEGATIVE) Urine Benzodiazepines Screen Neg (NEGATIVE) Urine Cocaine Screen Neg (NEGATIVE) Urine Cannabinoids Screen Neg (NEGATIVE) White Blood Count 5.7 10^3/uL (4.4-10.8) Red Blood Count 4.16 10^6/uL (4.5-5.90) Hemoglobin 12.3 g/dL (13.5-17.5) Hematocrit 37.7 % (41.0-53.0) Mean Corpuscular Volume 90.5 fL (80.0-100.0) Mean Corpuscular Hemoglobin 29.6 pg (28.0-32.0) Mean Corpuscular Hemoglobin Concent 32.7 g/dL (32.0-36.0) Red Cell Distribution Width 18.2 % (11.8-14.3) Platelet Count 210 10^3/uL (140-450) Mean Platelet Volume 8.5 fL (6.9-10.8) Neutrophils (%) (Auto) 62.0 % (37.0-80.0) Lymphocytes (%) (Auto) 14.4 % (10.0-50.0) Monocytes (%) (Auto) 15.1 % (0.0-12.0) Eosinophils (%) (Auto) 7.1 % (0.0-7.0) Basophils (%) (Auto) 1.4 % (0.0-2.0) Neutrophils # (Auto) 3.5 10 ^3/uL (1.6-8.6) Lymphocytes # (Auto) 0.8 10 ^3/uL (0.4-5.4) Monocytes # (Auto) 0.9 10 ^3/uL (0-1.3) Eosinophils # (Auto) 0.4 10 ^3/uL (0-0.8) Basophils # (Auto) 0.1 10 ^3/uL (0-0.2) Nucleated Red Blood Cells 0.0 % Total Bilirubin 1.2 mg/dL (0.2-1.0) Aspartate Amino Transferase (AST) 38 U/L (13-40) Alanine Aminotransferase (ALT) 27 U/L (7-40) Alkaline Phosphatase 143 U/L (46-116) Total Protein 6.1 g/dL (5.7-8.2) Albumin 3.6 g/dL (3.2-4.8) Troponin I High Sensitivity 65 ng/L (</=54) Test 02/22/25 19:57 02/22/25 19:07 Urine Color Light-yellow (Yellow) Urine Clarity Clear (Clear) Urine pH 6.0 (5.0-9.0) Urine Specific [place] 1.019 (1.001-1.035) Urine Protein Negative (Negative) Urine Ketones Negative (Negative) Urine Blood Negative /uL (Negative) Urine Nitrite Negative (Negative) Urine Bilirubin Negative (Negative) Urine Urobilinogen Normal mg/dL (Negative) Urine Leukocyte Esterase Negative /uL (Negative) Urine RBC <1 /hpf (0 - 3) Urine Microscopic WBC 1 /HPF (0-3) Urine Squamous Epithelial Cells None seen /hpf (<5) Urine Bacteria None seen /hpf (None Seen) Urine Glucose Normal mg/dL (Normal) B-Type Natriuretic Peptide 1065.39 pg/mL (0-100) Other Laboratory Tests 03/03/25 05:32 02/23/25 05:21 Brief Hx & Hospital Course: 54-year-old male with past medical history of CVA with left facial droop who presented to [facility] ED with complaint of chest pain associated with shortness of breaths for the past 1 day. Patient was seen initially at [facility] and was sent to our facility for higher level of care for cardiology evaluation. Per records accompanying the patient from the outside facility it shows that the patient has a pericardial effusion. They contacted Dr. Feldman who recommended to transfer the patient to our facility. Patient was seen and evaluated in the ED, laboratory data shows WBC 5.9, hemoglobin 12.7, hematocrit 38.5, platelets 226, sodium 138, potassium 4.6, BUN 32, creatinine 1.46, GFR 57, glucose 86, bilirubin 1.1, alkaline phos 158, BNP 1065.39, troponin 62, blood pressure 110/78, heart rate 95, temperature 98.9 F, O2 saturation 99% on room air. Patient was started on IV Lasix, please see medication orders section in the computer. On my assessment, patient denied chest pain at this moment, no headache, dizziness, diaphoresis, currently on oxygen, no diarrhea, nausea, vomiting, fever, no chills. Patient was admitted for further evaluation and medical management. During hospital had acute systolic HF exacerbation, optimized on IV lasix, got better and seen by cardiology. He refused AICD. Condition at Discharge: Good Final Diagnosis/Problems List acute systolic HF exacerbation acute pericardial effusion acute hypoxic respiratory failure due to HF exacerbation Acute systolic HF exacerbation EF 10% Elevated troponin Pericardial effusion Acute renal injury due to VMN Creat trending up to 1.8 Generalized weakness Discharge Disposition: Home Discharge Instruct/Medications Diet: Regular Activity: No Restrictions, As Tolerated Follow Up/Referral: PCp in 7 days Medications: metoprolol, lasix, colchicine Scheduled Apixaban Base (Eliquis), 2.5 MG PO BID, (Reported) Carvedilol (Carvedilol), 3.125 MG PO BID, (Reported) Colchicine (Colchicine), 0.6 MG PO DAILY Furosemide (Furosemide), 1 TAB PO BID, (Reported) Lisinopril (Lisinopril), 1 TAB PO DAILY, (Reported) Metoprolol Succinate (Toprol Xl), 25 MG PO DAILY Nitroglycerin (Ntrostat Sublingual), 0.4 MG SL PRN, (Reported) Discharge Statement: "Patient was advised to return to the ER or call 911 if any headaches, dizziness, shortness of breath, chest pain, abdominal pain, bleeding, fevers, or worsening of medical condition. Patient was counseled about treatment plan, medications, possible side effects, patientverbalized understanding. All questions were answered to the best of my ability. This discharge took greater then 30 minutes in planning, reviewing documentation, counseling the patient, and discussing with other team members." ASSESSMENT ASSESSMENT Assessment acute systolic HF exacerbation acute pericardial effusion acute hypoxic respiratory failure due to HF exacerbation Date of Service: Mar 04, 2025 Billing Provider: JUVENCIO BRISCOE MD Common Visit Codes: 33774-BQA/OBS DISCH DAY >30min JUVENCIO BRISCOE MD Mar 04, 2025 15:19
== END 2025-03-04 17:15 | disposition home or self-care (01) | DRG 194 ==
LOC: ER 18:29 → EDBD 18:29 → OVERFLOW 20:34 → TELE-WESTW 23:43
PROVIDERS: ADMIT Hospitalist; ATTEND Hospitalist
DX: I50.23 Acute on chronic systolic (congestive) heart failure (principal); N17.0 Acute kidney failure with tubular necrosis; J96.01 Acute respiratory failure with hypoxia; I30.9 Acute pericarditis, unspecified; Z79.01 Long term (current) use of anticoagulants; I27.20 Pulmonary hypertension, unspecified; I08.1 Rheumatic disorders of both mitral and tricuspid valves; D64.9 Anemia, unspecified; R18.8 Other ascites; Z88.0 Allergy status to penicillin; Z86.73 Personal history of transient ischemic attack (TIA), and cerebral infarction without residual deficits; Z79.899 Other long term (current) drug therapy; I42.0 Dilated cardiomyopathy
CPT/HCPCS: 36415; 71045; 80048; 80053; 80307; 81001; 83880; 84484; 85025; 87081; 93005; 93306; 94640; 96374; 99291; G0378; J1100; Q9956